=== PATIENT | female | born 1950 | race Caucasian/White ===

== ENCOUNTER → 2017-10-15 10:08 | Outpatient (CLI) | payer OTHER, SELFPAY ==
--- NOTE | 2017-10-15 10:36 | RAD_ITS ---
XR Chest 2 Views INDICATION: FULL BODY RASH OF UNKNOWN SOURCE, NO CHEST COMPLAINTS COMPARISON: None FINDINGS: Heart size and pulmonary vascularity are within normal limits. Sternotomy wires are noted The lungs are clear without evidence of airspace consolidation or pleural effusion. The osseous structures are grossly unremarkable. RAD/Chest PA and Lateral IMPRESSION: No radiographic evidence of acute intrathoracic disease. at 0059 Reported and signed by: Juany Torres MD Electronically Signed: Juany Torres MD at 23:57 EST Tel , Service support ,
[2017-10-15 11:21] LABS: Absolute Lymphocyte Count 1.14 X10^3/ul (0.83-4.51); Absolute Neutrophil Count 3.7 X10^3/uL (2.0-7.7); Basophil# 0.03 X10^3/uL; Basophil% 0.5 % (0-1); Eosinophil# 0.17 X10^3/uL; Eosinophils% 3.1 % (0-5); Hematocrit 41.6 % (37-47); Hemoglobin 13.5 g/dl (12.0-15.0); Lymphocyte # 1.14 X10^3/ul (4.0); Lymphocyte % 20.8 % (19-41); Mean Corp Hgb Conc 32.5 g/gl (32-36); Mean Corpuscular Hgb 30.1 pg (27.0-32.0); Mean Corpuscular Volume 92.7 fL (81-99); Mean Platelet Vol. 9.4 fl (6.2-12.0); Monocyte# 0.44 X10^3/uL; Neutrophil # 3.68 X10^3/uL (2.7-7.7); Neutrophil % 67.4 % (47-70); Platelet Count 181 K/mm3 (150-450); RBC Distribution Width CV 13.1 % (11.6-14.6); RBC Distribution Width SD 43.1 fl (35.1-43.9); Red Blood Count 4.49 M/mm3 (4.2-5.4); White Blood Count 5.5 K/mm3 (4.4-11.0)
[2017-10-15 11:36] LABS: POSITIVE COUNT NO; POSITIVE DIFFERENTIAL NO; POSITIVE MORPHOLOGY NO
[2017-10-15 11:52] LABS: AST(SGOT) 27 U/L (15-37); Alanine Aminotransfer ALT/SGPT 34 U/L (13-56); Alkaline Phosphatase 102 U/L (45-117); Anion Gap 5 (5-15); BUN 15 mg/dL (7-18); BUN/Creat Ratio 16.6 RATIO (10-20); Bilirubin, Direct 0.14 mg/dL (0.00-0.30); Calcium,Total 8.7 mg/dL (8.5-10.1); Chloride 108 mmol/L (98-107); EST Glomerular Filtration Rate 66 mL/min (>60); Est Glom Filt Rate - Afr Amer 80 mL/min (>60); Glucose 115 mg/dL (74-106); Potassium 4.1 mmol/L (3.5-5.1); Sodium Level 142 mmol/L (136-145); T4 Free Direct 1.06 ng/dL (0.76-1.46); Thyroid Stim Hormone (TSH) 0.89 uIU/mL (0.358-3.74)
[2017-10-16 16:09] LABS: Albumin 3.6 g/dL (2.9-4.4); Alpha-1-Globulins 0.2 g/dL (0.0-0.4); Alpha-2-Globulins 0.7 g/dL (0.4-1.0); Immunoglobulin A 80 mg/dL (87-352); Immunoglobulin G 919 mg/dL (700-1600); Immunoglobulin M 117 mg/dL (26-217); PROEL- TOTAL PROTEIN 6.5 g/dL (6.0-8.5); PROELU- Albumin, Urine 37.7 % (.); PROELU- Alpha-1-Globulin,Ur 3.6 % (.); PROELU- Alpha-2-Globulin,Ur 14.5 % (.); PROELU- Beta Globulin, Ur 22.4 % (.); PROELU- Gamma Globulin, Ur 21.7 % (.); Total Protein, Ur 40.7 mg/dL (Not Estab.)
[2017-10-17 07:57] LABS: HIV-1 RNA by PCR, Quant. < 20 copies/mL (.)
[2017-10-17 13:40] LABS: Hep C Antibodies <0.1 s/co ratio (0.0-0.9)
== END ==
PROVIDERS: Family Provider Internal Medicine; PCP Internal Medicine; Visit Provider Dermatology
DX: L29.8 Other pruritus (principal)
CPT/HCPCS: 36415; 71046; 80048; 80076; 82784; 84165; 84166; 84439; 84443; 85025; 86334; 86803; 87536

== ENCOUNTER → 2018-06-25 07:13 | Outpatient (CLI) | payer OTHER, SELFPAY ==
--- NOTE | 2018-06-25 14:08 | PFTCOMP_ITS ---
COMPLETE PULMONARY FUNCTION TEST INTERPRETATION Brief HPI: Patient is a 67 year old female, currently under the care of Dr. Peña, who presents to [facility] for complete pulmonary function tests secondary to diagnosis of dyspnea. Respiratory therapist reports good effort and reproducible results. Interpretation: Forced expiration spirometry shows a mild large airways obstructive ventilatory defect with an FEV1 of 78% predicted. There is no significant bronchodilator res ponse by strict ATS criteria. Spirograms are of good quality and plateau slowly, indicating slowly emptying areas of the lungs. The respiratory flow volume loop shows decreased expiratory flow rates at all lung volumes consistent with airway obstruction. Lung volumes by body plethysmography show a normal total lung capacity at 4.44 L, 102% predicted. All other lung volumes are within normal limits. Diffusion capacity by carbon monoxide is decreased at 62% predicted. The airway resistance is normal. No previous pulmonary function tests were available for review. Impression: Mild large airways obstructive ventilatory defect with a reduction in diffusing capacity.
== END ==
PROVIDERS: Family Provider Internal Medicine; PCP Internal Medicine; Referring Provider Internal Medicine; Visit Provider Internal Medicine
DX: R06.02 Shortness of breath (principal)
CPT/HCPCS: 94060; 94726; 94729

== ENCOUNTER → 2018-06-26 09:25 | Outpatient (CLI) | payer OTHER, SELFPAY | PROVIDERS: Family Provider Internal Medicine; PCP Internal Medicine; Referring Provider Internal Medicine; Visit Provider Internal Medicine | DX: Z78.0 Asymptomatic menopausal state (principal) ==

== ENCOUNTER → 2018-07-09 12:11 | Outpatient (CLI) | payer OTHER, SELFPAY ==
[2018-07-09] VITALS (7 sets, daily range): BP systolic 131–178; BP diastolic 57–101; PULSE 69–91; RESP 16–18; O2SAT 93–99; BMI 52.7
--- NOTE | 2018-07-09 12:20 | BD_ITS ---
STUDY: DUAL ENERGY X-RAY ABSORPTIOMETRY / DXA REASON FOR EXAM: Female, 67 years old. Early menopause. TECHNIQUE: Bone Mineral Density (BMD) measurements of lumbar spine and bilateral hips were obtained. COMPARISON: Comparison is made with prior examination dated June 01, 2016. FINDINGS: Lumbar Spine (L1-L4): g/cm2 (1.118) / T-score (-0.7) / Z-score (0.9) Findings are suggestive of normal bone density with a low fracture risk. Left Femur Total: g/cm2 (0.990) / T-score (-0.1) / Z-score (1.1) Left Femoral Neck: g/cm2 (0.897) / T-score (-1.0) / Z-score (0.5) Right Femur Total: g/cm2 (0.850) / T-score (-1.3) / Z-score (0.0) Right Femoral Neck: g/cm2 (0.798) / T-score (-1.7) / Z-score (-0.2) The T-Scores on the most recent prior examination were: Lumbar Spine (L1-L4): There has been improvement of bone density since the previous examination. Left Femur Total: which represents a worsening of 5.0%. Right Femur Total: which represents a worsening of 3.6%. BD/Dexa Bone Density Study IMPRESSION: The patient is considered osteopenic as outlined below according to World Hari Organization (WHO) criteria with a moderate fracture risk. There has been worsening of bone density since the previous examination. Reference Information: The T-score is the number of standard deviations above or below the standard which is normal for young adults at their peak bone mineral density. The World Health Organization (WHO) interprets the T-scores as follows: Above -1 Normal bone density Between -1 and -2.5 Osteopenia Equal to / or below -2.5 Osteoporosis As a practical clinical guideline, osteopenia may be graded as follows: Mild -1 through -1.5 Moderate -1.6 through -2.0 Severe -2.1 through -2.4 The Z-score is the number of standard deviations above or below age-matched controls. A Z-score of less than -1.5 would be considered abnormal. References: 1. NIH Osteoporosis and Related Bone Diseases http://www.osteo.org 2. International Society for Clinical Densitometry http://www.iscd.org 3. National Osteoporosis Foundation http://www.nof.org Electronically Signed: Gerry Jarrett MD at 15:46 EST Tel [phone], Service support ,
--- NOTE | 2018-07-09 12:44 | CT_ITS ---
STUDY: CT CHEST WITHOUT CONTRAST REASON FOR EXAM: Female, 67 years old. Elevated cholesterol. Coronary artery disease. This is an over read examination. RADIATION DOSAGE (If Supplied By Facility): CTDIvol = ( 12.19 ) mGy, DLP = ( 195.04 ) mGycm TECHNIQUE: Transaxial imaging was performed without the administration of intravenous contrast material. Individualized dose optimization techniques were used for this CT. COMPARISON: None. FINDINGS: The lungs are normal. There is no demonstrated pleural abnormality. Sternal cerclage wires and vascular clips are present from a prior sternotomy and coronary artery bypass graft procedure (CABG). There are calcifications of the coronary arteries. Normal mediastinum. Normal hilar regions. Normal unenhanced pulmonary arteries. There is atherosclerotic calcification of the aortic arch . There are mild degenerative changes of the thoracic spine. Small hiatal hernia. CT/Limited Chest CT w/CCTA IMPRESSION: No acute abnormality is seen. Electronically Signed: Gerry Jarrett MD at 10:30 EST Tel [phone], Service support ,
[2018-07-09] MEDS: Metoprolol Tartrate 5 MG/5 ML Vial IV (13:18)
--- NOTE | 2018-07-11 08:57 | CA.SCORE ---
Calcium Scoring Date of Study:: 07/09/18 Coronary Calcium Scoring: Coronary calcium scoring. High-resolution computed tomographic imaging of the chest was performed on 07/09/2018 with particular attention paid to the coronary arteries. Images from the exam were analyzed for the presence and extent of coronary artery calcification using the quantification software. The patient tolerated the procedure well there were no complications. Of note is the fact that the patient has had known coronary artery disease and coronary bypass surgery with sternotomy clips. The coronary artery calcification score is therefore noted to be highly skewed. Left main 393. Left anterior descending artery thousand 141. Left circumflex artery 579. Right coronary artery thousand 514. Total Agagston score is 3627. The above coronary calcium score is likely not accurate due to the significant sternal clips as well as post coronary bypass surgery state.
== END ==
PROVIDERS: Family Provider Internal Medicine; PCP Internal Medicine; Referring Provider Internal Medicine; Visit Provider Internal Medicine
DX: I25.10 Atherosclerotic heart disease of native coronary artery without angina pectoris (principal); E11.9 Type 2 diabetes mellitus without complications; R79.89 Other specified abnormal findings of blood chemistry; E78.5 Hyperlipidemia, unspecified; Z78.0 Asymptomatic menopausal state
CPT/HCPCS: 75571; 76380; 77080; A4216

== ENCOUNTER → 2019-01-13 | Outpatient (CLI) | payer SELFPAY | END | disposition home or self-care (01) | LOC: LABSPEC 16:59 | PROVIDERS: Family Provider Internal Medicine; PCP Internal Medicine; Referring Provider Urology; Visit Provider Urology | DX: N39.0 Urinary tract infection, site not specified (principal) | CPT/HCPCS: 87077; 87086; 87088; 87186 ==

== ENCOUNTER → 2019-02-13 | Outpatient (CLI) | payer MEDICARE, OTHER, SELFPAY ==
--- NOTE | 2019-02-13 08:13 | US_ITS ---
STUDY: ABDOMINAL ULTRASOUND - RIGHT UPPER QUADRANT REASON FOR VISIT: Female, 68 years old. Elevated LFTs. TECHNIQUE: Ultrasound evaluation of the right upper quadrant was performed with real-time and static arvizu-scale imaging. TECHNICAL QUALITY: Examination limited by bowel gas. COMPARISON: CT of the abdomen and pelvis, June 18, 2017. FINDINGS: Liver: The liver measures 17.0 cm. There is increased echogenicity consistent with fatty infiltration. The bile ducts are within normal limits. There is hepatic color flow. The direction of portal flow is hepatopetal. There is limited penetration of the liver without demonstrated mass lesion. Gallbladder: The patient is status post cholecystectomy. Common Bile Duct (C.B.D.): The common bile duct measures 4.3 mm. Pancreas: There is nonvisualization of the pancreas. Right Kidney: Normal size of the right kidney. The right kidney measures 10.9 cm. Normal renal cortex. The right cortex measures 1.3 cm. There is no demonstrated renal mass or cyst. There is no right hydronephrosis. US/Liver IMPRESSION: 1. Prominent fatty infiltrated liver with limited sonographic penetration. 2. Status post cholecystectomy. 3. Nonvisualization of the pancreas due to bowel gas. 4. Normal right kidney. Electronically Signed: Trevor Mendoza DO at 17:05 EDT Tel [phone], Service support ,
== END | disposition home or self-care (01) ==
LOC: US 08:11
PROVIDERS: Family Provider Internal Medicine; PCP Internal Medicine; Referring Provider Internal Medicine; Visit Provider Internal Medicine
DX: R94.5 Abnormal results of liver function studies (principal)
CPT/HCPCS: 76705

== ENCOUNTER → 2019-06-26 | Outpatient (CLI) | payer MEDICARE, OTHER, SELFPAY ==
[2018-07-09 12:52] VITALS: BMI 52.7
--- NOTE | 2019-06-26 11:52 | BI_ITS ---
MAMMOGRAPHY - BILATERAL SCREENING REASON FOR EXAM: Female, 68 years old. Routine annual screening examination. PERTINENT HISTORY: Non-contributory. TECHNIQUE: Digital bilateral breast christiana (3D mammographic acquisition) in the CC and MLO projections. 2-D mediolateral oblique (MLO) and craniocaudad (CC) views of both breasts were obtained. CAD: Full Field Digital Mammography with Computer Added Detection was performed. COMPARISON: Comparison is made with prior outside examination dated June 19, 2018. FINDINGS: Breast Composition: The breasts are almost entirely fatty. There are no dominant masses or suspicious calcifications. No other significant abnormalities are identified. There has been no significant change since the prior study. BI/SCREEN MAMM (CAD) W/CHRISTIANA BILAT IMPRESSION: Stable bilateral screening mammogram. Yearly follow-up mammogram recommended. (A) ASSESSMENT CATEGORY: BIRADS Category 2: Benign. A letter regarding these results will be sent to the patient by the facility within 30 days. Approximately 10% of breast cancers are not detected by mammography. A normal mammogram should not delay biopsy of a clinically suspicious abnormality. [id number] Electronically Signed: Gerry Jarrett, at 8:52 EST , Service support ,
== END | disposition home or self-care (01) ==
LOC: OPBI 11:51
PROVIDERS: Family Provider Internal Medicine; PCP Internal Medicine; Referring Provider Internal Medicine; Visit Provider Internal Medicine
DX: Z12.31 Encounter for screening mammogram for malignant neoplasm of breast (principal)
CPT/HCPCS: 77063; 77067

== ENCOUNTER → 2019-12-30 | Outpatient (CLI) | payer MEDICARE, OTHER, SELFPAY ==
[2019-07-28 13:33] VITALS: BMI 49.7
--- NOTE | 2019-12-30 12:22 | CT_ITS ---
STUDY: CT RIGHT KNEE WITHOUT CONTRAST REASON FOR EXAM: Female, 69 years old. FELA KNEE, RT KNEE PAIN, NO KNOWN INJURY, OSTEOARTHRITIS OF KNEE, HX HTN, DB, CABG RADIATION DOSAGE (If Supplied By Facility): CTDIvol = ( 34.72 ) mGy, DLP = ( 2019.32 ) mGycm TECHNIQUE: Transaxial CT imaging of the knee was performed. Coronal and sagittal images were reformatted. Individualized dose optimization techniques were used for this CT. COMPARISON: Comparison is made with prior examination of the knee dated May 25, 2016. FINDINGS: Degenerative spurring is seen along the greater trochanter of the proximal right femur. No significant joint space narrowing is seen in the right hip joint. Degenerative spurring is seen along the medial femoral condyle and medial tibial plateau. Marked degree of joint space narrowing involving the medial compartment of the knee joint. Degenerative spurring is seen along the lateral tibial plateau as well as the lateral femoral condyle. Mild degree of joint space narrowing of the lateral compartment. Normal proximal tibiofibular articulation. There is no joint effusion. The quadriceps tendon is grossly normal. The patellar tendon is grossly normal. Normal Hoffa''s fat pad. The soft tissues are unremarkable. CT/Extremity Lower without Contra IMPRESSION: Degenerative changes of the medial compartment of the knee joint as described. Electronically Signed: Gerry Jarrett, at 8:33 EDT , Service support ,
== END | disposition home or self-care (01) ==
LOC: CT 12:18
PROVIDERS: PCP Internal Medicine; Referring Provider Orthopaedic Surgery; Visit Provider Orthopaedic Surgery
DX: M17.0 Bilateral primary osteoarthritis of knee (principal)
CPT/HCPCS: 73700

== ENCOUNTER 2020-01-05 07:21 | Observation (INO) | payer MEDICARE, OTHER, SELFPAY ==
[2019-07-28 13:33] VITALS: BMI 49.7
--- NOTE | 2019-12-30 12:22 | EKG12_ITS ---
Test Reason : PREOP Blood Pressure : / mmHG Vent. Rate : 071 BPM Atrial Rate : 071 BPM P-R Int : 158 ms QRS Dur : 080 ms QT Int : 426 ms P-R-T Axes : 013 000 058 degrees QTc Int : 462 ms Normal sinus rhythm Incomplete right bundle branch block Inferior [place], age undetermined, cannot be excluded Nonspecific T wave abnormality Abnormal ECG Confirmed by KAROL TILLEY, GERONIMO ([id number]), acquisitions editor JUANJO LOCKHART ([id number]) on 12/31/2019 9:01:22 AM Referred By: Caleb Espinoza Confirmed By:GERONIMO ROBERSON MD
[2019-12-30 13:18] LABS: Absolute Lymphocyte Count 1.73 X10^3/uL (0.83-4.51); Absolute Neutrophil Count 6.1 X10^3/uL (2.0-7.7); Basophil# 0.06 X10^3/uL; Basophil% 0.7 % (0-1); Eosinophil# 0.15 X10^3/uL; Eosinophils% 1.7 % (0-5); Hematocrit 46.2 % (37-47); Hemoglobin 14.8 g/dL (12.0-15.0); Lymphocyte # 1.73 X10^3/ul (4.0); Lymphocyte % 19.6 % (19-41); Mean Corpuscular Hgb 30.5 pg (27.0-32.0); Mean Corpuscular Volume 95.1 fL (81-99); Monocyte# 0.73 X10^3/uL; Monocyte% 8.3 % (0-10); NRBC Flagged by Analyzer 0 % (0-5); Neutrophil # 6.11 X10^3/uL (2.7-7.7); Neutrophil % 69.2 % (47-70); Platelet Count 210 K/mm3 (150-450); RBC Distribution Width CV 12.5 % (11.6-14.6); RBC Distribution Width SD 43.4 fl (35.1-43.9); Red Blood Count 4.86 M/mm3 (4.2-5.4); White Blood Count 8.8 K/mm3 (4.4-11.0)
[2019-12-30 13:57] LABS: Anion Gap 4 (5-15); BUN 19 mg/dL (7-18); BUN/Creat Ratio 15.1 RATIO (10-20); Calcium,Total 9.3 mg/dL (8.5-10.1); Chloride 108 mmol/L (98-107); Creatinine, Serum 1.26 mg/dL (0.55-1.02); EST Glomerular Filtration Rate 45 mL/min (>60); Est Glom Filt Rate - Afr Amer 54 mL/min (>60); Glucose 149 mg/dL (74-106); Potassium 4.5 mmol/L (3.5-5.1); Sodium Level 141 mmol/L (136-145)
[2020-01-05] VITALS (13 sets, daily range): BP systolic 76–130; BP diastolic 46–88; PULSE 66–84; RESP 14–18; TEMP 36.3–37.3; O2SAT 92–100; BMI 49.3
[2020-01-05] MEDS: Scopolamine 1mg/72hr Patch 1 PATCH TRANSDERM. (06:06)
[2020-01-05] MEDS: Gabapentin 600 MG Tablet PO (06:06)
[2020-01-05] MEDS: Acetaminophen 500 MG Tablet 1000 MG PO ×3 (06:06→22:11)
[2020-01-05] MEDS: Lactated Ringers 1,000 ML 100 ML IV ×2 (06:19→11:56)
[2020-01-05 06:31] LABS: Bedside Glucose 278 mg/dL (70-110)
[2020-01-05] MEDS: Insulin Lispro 100 UNIT/ML INSULN.PEN SC (07:10)
--- NOTE | 2020-01-05 07:30 | KNEE_PTH ---
PATIENT: VERNON SOTOMAYOR LOC: MS3 U#:[id number] AGE/SX: 69/F ROOM: [facility] RE01/05/[address]: Dr. Caleb Espinoza DO : 1950 BED: 1 DIS: 01/06/2020 SPEC #: [id number] RECD: 01/05/20 13:22 STATUS: TAHIR REPatricia #: [id number] LISA: 01/05/20 07:[address]: Caleb Espinoza DEPT: SURGICAL PATHOLOGY RECD BY: Kareem Hayward ENTERED: 01/06/20 09:01 SP TYPE: TOTAL KNEE OTHR DR: MD Dr. Gaurav Gómez MD Tissues: Knee, NOS Procedures: Decalcification bone/plaque Surgery Specimen Level IV HEADER OPERATION: XAVIERS, robotic assisted total knee arthroplasty PRE-OP DIAGNOSIS: Osteoarthritis TISSUE SUBMITTED: Bone from right knee MICROSCOPIC DIAGNOSIS Bone of right knee, total knee resection: Severe degenerative joint disease. AM:сергей 01/09/20 MICROSCOPIC DESCRIPTION Slides are reviewed. GROSS DESCRIPTION Received is one container designated bone from right knee. The specimen consists of multiple fragments of shelton-yellow bone measuring in aggregate 10 x 8 x 4 cm. No soft tissue is identified. A number of bony fragments contain articular surfaces consistent with tibial plateau and femoral condyle and displaying prominent osteophyte formation, eburnation, and bone erosion. Cleaning Handyman sections are submitted in one cassette after decalcification. / SJ:сергей 01/06/20 TC:5 CPT: 43522, 86032
--- NOTE | 2020-01-05 09:05 | OP.PCM_ITS ---
Report of Operation Date of Procedure: 01/05/20 Pre-Operative Diagnosis: OA right knee Post-Operative Diagnosis: OA right knee Surgery/Procedure Performed:: right TKR supervisor electronic testing: Asim Taylor Type of Anesthesia:: Spinal Anesthesiologist: Devin Barahona - Admmiky VTE Documentation VTE Present on Admission: No VTE Mechan Device Prophylaxis: SCD's, Thigh High FRANCHESKA Hose VTE Pharm Prophylaxis ordered?: Yes
[2020-01-05 10:05] LABS: Bedside Glucose 125 mg/dL (70-110)
--- NOTE | 2020-01-05 10:25 | RAD_ITS ---
STUDY: X-RAY - RIGHT KNEE REASON FOR EXAM: Female, 69 years old. POST OP TECHNIQUE: AP and lateral view(s) of the knee. COMPARISON: None. FINDINGS: Normal visualized distal femur. Normal visualized proximal tibia and fibula. Normal proximal tibiofibular articulation. The patient is status post total knee replacement. There is good alignment. Postoperative soft tissue changes. RAD/Knee 1 or 2 Views IMPRESSION: Status post total knee replacement. There is good alignment. Postoperative soft tissue changes. Electronically Signed: Gerry Jarrett, at 12:27 EDT , Service support ,
[2020-01-05 10:48] LABS: Hematocrit 39.6 % (37-47); Hemoglobin 12.6 g/dL (12.0-15.0); Mean Corp Hgb Conc 31.8 g/dL (32-36); Mean Corpuscular Hgb 30.2 pg (27.0-32.0); Mean Platelet Vol. 9.7 fl (6.2-12.0); POSITIVE COUNT YES; Platelet Count 115 K/mm3 (150-450); RBC Distribution Width CV 12.7 % (11.6-14.6); Red Blood Count 4.17 M/mm3 (4.2-5.4); White Blood Count 7.4 K/mm3 (4.4-11.0)
[2020-01-05 10:49] LABS: Scan Indicated on CBC? Y/N YES- FLAGS NOTED
[2020-01-05 11:03] LABS: Anion Gap 5 (5-15); BUN 13 mg/dL (7-18); BUN/Creat Ratio 11.8 RATIO (10-20); Calcium,Total 8.3 mg/dL (8.5-10.1); Chloride 109 mmol/L (98-107); EST Glomerular Filtration Rate 53 mL/min (>60); Est Glom Filt Rate - Afr Amer 64 mL/min (>60); Estimated Creatinine Clearance 38.71 ml/min; Glucose 141 mg/dL (74-106); Sodium Level 141 mmol/L (136-145)
[2020-01-05] MEDS: Atorvastatin Calcium 80 MG Tablet PO (13:47)
[2020-01-05] MEDS: Escitalopram Oxalate 20 MG Tablet PO (13:48)
[2020-01-05] MEDS: Ezetimibe 10 MG Tablet PO (13:48)
[2020-01-05] MEDS: Cefazolin 1 GM/50 ML BAG IV ×2 (15:50→22:44)
--- NOTE | 2020-01-05 17:28 | PN_ITS ---
Subjective: Chief complaint: Consultation for postoperative vision change, diplopia. This is a 69 years old female patient underwent elective right total knee replacement for right knee osteoarthritis and postoperatively, patient developed vision change with diplopia which is attributed to scopolamine patch which was taken off but symptoms persisted and I was asked to see the patient in consultation. Patient seen and examined. Patient had her surgery this morning and she did well after surgery. This afternoon around 4 PM, she complained of vision change, described as diplopia seeing things double, associated with mild dizziness and without aggravating or relieving factors. Scopolamine patch taken off around 4:10 PM and at this time, she mentioned that the diplopia is eased up. She denied any headache, nausea or vomiting. She denied numbness or tingling. She denied focal arm or leg weakness. Her vital signs has been stable. - Physical Exam Vitals/I&O's: Vital Signs Temp Pulse Resp BP Pulse Ox 97.6 F L 71 16 100/46 L 94 01/05/20 15:51 01/05/20 15:51 01/05/20 15:51 01/05/20 15:51 01/05/20 15:51 Oxygen Flow Rate (L/min) 6 Oxygen Delivery Method Room Air Weight: 269 lb 13.533 oz Body Mass Index (BMI) 49.3 Finger Stick Blood Glucose 125 Intake and Output for Last 24 Hours 01/03/20 01/04/20 01/05/20 23:59 23:59 23:59 Intake Total 946.67 / 946.67 Balance 946.67 / 946.67 General: Alert, Oriented x3, Cooperative, No apparent distress HEENT: Atraumatic, PERRLA, EOMI, Normocephalic Oral: Moist Mucosa, No Gingival or Mucosal Lesions/ Ulcerations Neck: Supple, No JVD, Negative Carotid Bruits, Trachea Midline, Thyroid Normal Size and Texture Lungs: Clear to auscultation, Normal air movement, No rhonchi, No wheeze, No rales Cardiovascular: Regular rate, Regular Rhythm, Normal S1, Normal S2, PMI Normal Abdomen: Bowel Sounds Present, Soft, Non Tender, Non-Distended, No Hepato- splenomegaly Extremities: No clubbing, No cyanosis, Edema - Nonpitting edema. Skin: No rashes, No breakdown Lymphatic: No Cervical, Supraclavicular, or Inguinal Adenopathy Neurological: Cranial nerves II-XII grossly intact, Motor Exam 5/5 strength t hroughout, - - Diplopia. Psych/Mental Status: Normal Affect, Appropriate, Alert and oriented to time, place, person, mood and affect Laboratory Results 01/05/20 05:51: POC Glucose 278 H 01/05/20 10:03: POC Glucose 125 H 01/05/20 10:41: WBC 7.4, RBC 4.17 L, Hgb 12.6, Hct 39.6, MCV 95.0, MCH 30.2, MCHC 31.8 L, RDW Std Deviation 44.0 H, RDW Coeff of Bayron 12.7, Plt Count 115 L, MPV 9.7 01/05/20 10:41: Sodium 141, Potassium 4.0, Chloride 109 H, Carbon Dioxide 27.0, Anion Gap 5, BUN 13, Creatinine 1.10 H, Estim Creat Clear Calc 38.71, Est GFR (MDRD) Af Amer 64, Est GFR (MDRD) Non-Af 53 L, BUN/Creatinine Ratio 11.8, Glucose 141 H, Calcium 8.3 L Current Medications Acetaminophen (Tylenol) 1,000 mg PO Q8 [facility] Last Admin: 01/05/20 13:47 Dose: 1,000 mg Documented by: Aspirin (Aspirin) 325 mg PO BID [facility] Atorvastatin Calcium (Lipitor) 80 mg PO DAILY [facility] Last Admin: 01/05/20 13:47 Dose: 80 mg Documented by: Ezetimibe (Zetia) 10 mg PO DAILY [facility] Last Admin: 01/05/20 13:48 Dose: 10 mg Documented by: Escitalopram Oxalate (Lexapro) 20 mg PO DAILY [facility] Last Admin: 01/05/20 13:48 Dose: 20 mg Documented by: Lactated Ringer's () 1,000 mls @ 100 mls/hr IV .Q10H [facility] Last Admin: 01/05/20 11:56 Dose: 100 mls/hr Documented by: Cefazolin Sodium () 1 gm in 50 mls @ 150 mls/hr IV Q8H [facility] Stop: 01/05/20 23:49 Last Infusion: 01/05/20 16:10 Dose: Infused Documented by: Insulin Human Lispro (Humalog Dale (Bkc)) 1 - 6 unit SC Q4H PRN PRN; Protocol PRN Reason: BG>/= 180, SEE PROTOCOL Last Admin: 01/05/20 07:10 Dose: 3 units Documented by: Lisinopril (Zestril) 5 mg PO DAILY [facility] Metoprolol Tartrate (Lopressor (Beta Sudha)) 50 mg PO DAILY [facility] Ondansetron HCl (Zofran) 4 mg IV Q8H PRN PRN PRN Reason: NAUSEA Oxycodone HCl (Oxyir) 5 - 10 mg PO Q4H PRN PRN PRN Reason: Pain Score 4-10/10 Pantoprazole Sodium (Protonix) 40 mg PO DAILY [facility] Last Admin: 01/05/20 13:55 Dose: Not Given Documented by: Potassium Citrate (Potassium Citrate Er) 15 meq PO BID [facility] Promethazine HCl (Phenergan) 12.5 mg IM Q6H PRN PRN; Protocol PRN Reason: NAUSEA/VOMITING Senna/Docusate Sodium (Senokot-S, Naheed-Colace) 2 tablet PO BID [facility] Last Admin: 01/05/20 12:54 Dose: Not Given Documented by: Sodium Chloride () 10 - 40 ml IV UD PRN PRN Reason: SALINE FLUSH Tolterodine Tartrate (Detrol La) 4 mg PO DAILY [facility] Last Admin: 01/05/20 13:55 Dose: Not Given Documented by: Medical Necessity - Tobacco Use Smoking Status: Never smoker Tobacco Use: Non-smoker Assessment/Plan This is a 69 years old female patient underwent elective right total knee replacement for right knee osteoarthritis today and I am seeing this patient in consultation after she developed vision changes/diplopia postoperatively. #1 vision change/diplopia: Without any other symptoms suggestive of TIA or stroke. Patient denied numbness, tingling, headache, focal arm or leg weakness. Her vital signs are stable. This is attributed to scopolamine patch which was taken off. Now, patient stated that the diplopia is easing up and getting better. Her vital signs are stable, blood pressure under control. Plan: Monitor, no indication for further testing or imaging at this time unless her symptoms persist. #2 status post right total knee replacement: This was done for right knee osteoarthritis, postoperative day 0. She is on IV cefazolin for perioperative prophylaxis. She is on OxyIR PRN for pain. Orthopedic surgery is managing. #3 CAD status post CABG and stents: Stable, continue aspirin, statins, Zetia, lisinopril and metoprolol. #4 hypertension: Blood pressure stable, continue lisinopril and metoprolol. #5 hyperlipidemia: Continue statins. #6 depression: Stable, continue Lexapro. #7 DVT prophylaxis: On aspirin twice daily. Inpatient E&M: 71123 Subs Hosp L2
[2020-01-05] MEDS: Aspirin 325 MG Tablet PO (22:11)
[2020-01-05] MEDS: Senna/Docusate Sodium 1 Tablet 2 TABLET PO (22:11)
[2020-01-06 02:00] VITALS: BP 136/53; PULSE 84; RESP 16; TEMP 36.5; O2SAT 100
[2020-01-06] MEDS: Acetaminophen 500 MG Tablet 1000 MG PO ×2 (05:26→13:43)
[2020-01-06] MEDS: 0.9% Saline Lock 10 ML Syringe IV (05:27)
[2020-01-06 06:19] LABS: Hematocrit 34.9 % (37-47); Hemoglobin 11.4 g/dL (12.0-15.0); Mean Corp Hgb Conc 32.7 g/dL (32-36); Mean Corpuscular Hgb 30.2 pg (27.0-32.0); Mean Corpuscular Volume 92.6 fL (81-99); Platelet Count 103 K/mm3 (150-450); RBC Distribution Width CV 12.9 % (11.6-14.6); RBC Distribution Width SD 42.8 fl (35.1-43.9); Red Blood Count 3.77 M/mm3 (4.2-5.4); White Blood Count 7.3 K/mm3 (4.4-11.0)
[2020-01-06] MEDS: oxyCODONE 5 MG Tablet PO (06:46)
[2020-01-06 06:49] LABS: Anion Gap 9 (5-15); BUN 14 mg/dL (7-18); BUN/Creat Ratio 14.3 RATIO (10-20); Calcium,Total 8.5 mg/dL (8.5-10.1); Chloride 105 mmol/L (98-107); Creatinine, Serum 0.98 mg/dL (0.55-1.02); EST Glomerular Filtration Rate 60 mL/min (>60); Est Glom Filt Rate - Afr Amer 73 mL/min (>60); Estimated Creatinine Clearance 43.45 ml/min; Glucose 152 mg/dL (74-106); Sodium Level 137 mmol/L (136-145)
--- NOTE | 2020-01-06 07:24 | PCM.PN.ORT ---
Subjective: Patient sitting at bedside eating breakfast. Patient states pain is well managed. Patient states that her double vision has resolved. Patient denies chest pain, shortness of breath, calf pain, nausea vomiting. Patient has no other complaints and states she is ready to be discharged home. Objective: Dressing is clean dry intact. Negative signs or symptoms of DVT. Patient moving all extremities without limitations. Patient's vitals and labs all within normal limits. Patient is a febrile, speaking in full sentences with no obvious shortness of breath. - Physical Exam Vitals/I&O's: Vital Signs Temp Pulse Resp BP Pulse Ox 97.7 F L 84 16 136/53 H 100 01/06/20 02:00 01/06/20 02:00 01/06/20 02:00 01/06/20 02:00 01/06/20 02:00 Oxygen Flow Rate (L/min) 6 Oxygen Delivery Method Room Air Weight: 122.4 kg Body Mass Index (BMI) 49.3 Finger Stick Blood Glucose 125 Intake and Output for Last 24 Hours 01/04/20 01/05/20 01/06/20 23:59 23:59 23:59 Intake Total 2368.34 / 2368.34 1310.25 / 1310.25 Output Total 150 / 150 800 / 800 Balance 2218.34 / 2218.34 510.25 / 510.25 General: Alert, Oriented x3 Oral: Moist Mucosa Cardiovascular: Regular rate Neurological: Cranial nerves II-XII grossly intact Psych/Mental Status: Normal Affect, Alert and oriented to time, place, person, mood and affect Laboratory Results 01/05/20 10:03: POC Glucose 125 H 01/05/20 10:41: WBC 7.4, RBC 4.17 L, Hgb 12.6, Hct 39.6, MCV 95.0, MCH 30.2, MCHC 31.8 L, RDW Std Deviation 44.0 H, RDW Coeff of Bayron 12.7, Plt Count 115 L, MPV 9.7 01/05/20 10:41: Sodium 141, Potassium 4.0, Chloride 109 H, Carbon Dioxide 27.0, Anion Gap 5, BUN 13, Creatinine 1.10 H, Estim Creat Clear Calc 38.71, Est GFR (MDRD) Af Amer 64, Est GFR (MDRD) Non-Af 53 L, BUN/Creatinine Ratio 11.8, Glucose 141 H, Calcium 8.3 L 01/06/20 05:42: WBC 7.3, RBC 3.77 L, Hgb 11.4 L, Hct 34.9 L, MCV 92.6, MCH 30.2, MCHC 32.7, RDW Std Deviation 42.8, RDW Coeff of Bayron 12.9, Plt Count 103 L, MPV 10.0 01/06/20 05:42: Sodium 137, Potassium 4.0, Chloride 105, Carbon Dioxide 23.0, Anion Gap 9, BUN 14, Creatinine 0.98, Estim Creat Clear Calc 43.45, Est GFR (MDRD) Af Amer 73, Est GFR (MDRD) Non-Af 60, BUN/Creatinine Ratio 14.3, Glucose 152 H, Calcium 8.5 Current Medications Acetaminophen (Tylenol) 1,000 mg PO Q8 [facility] Last Admin: 01/06/20 05:26 Dose: 1,000 mg Documented by: Aspirin (Aspirin) 325 mg PO BID [facility] Last Admin: 01/05/20 22:11 Dose: 325 mg Documented by: Atorvastatin Calcium (Lipitor) 80 mg PO DAILY [facility] Last Admin: 01/05/20 13:47 Dose: 80 mg Documented by: Ezetimibe (Zetia) 10 mg PO DAILY [facility] Last Admin: 01/05/20 13:48 Dose: 10 mg Documented by: Escitalopram Oxalate (Lexapro) 20 mg PO DAILY [facility] Last Admin: 01/05/20 13:48 Dose: 20 mg Documented by: Insulin Human Lispro (Humalog Kwikpen (Bkc)) 1 - 6 unit SC Q4H PRN PRN; Protocol PRN Reason: BG>/= 180, SEE PROTOCOL Last Admin: 01/05/20 07:10 Dose: 3 units Documented by: Lisinopril (Zestril) 5 mg PO DAILY [facility] Metoprolol Tartrate (Lopressor (Beta Sudha)) 50 mg PO DAILY [facility] Ondansetron HCl (Zofran) 4 mg IV Q8H PRN PRN PRN Reason: NAUSEA Oxycodone HCl (Oxyir) 5 - 10 mg PO Q4H PRN PRN PRN Reason: Pain Score 4-10/10 Last Admin: 01/06/20 06:46 Dose: 5 mg Documented by: Pantoprazole Sodium (Protonix) 40 mg PO DAILY [facility] Last Admin: 01/05/20 13:55 Dose: Not Given Documented by: Potassium Citrate (Potassium Citrate Er) 15 meq PO BID [facility] Last Admin: 01/05/20 22:17 Dose: 15 meq Documented by: Promethazine HCl (Phenergan) 12.5 mg IM Q6H PRN PRN; Protocol PRN Reason: NAUSEA/VOMITING Senna/Docusate Sodium (Senokot-S, Naheed-Colace) 2 tablet PO BID [facility] Last Admin: 01/05/20 22:11 Dose: 2 tablet Documented by: Sodium Chloride () 10 - 40 ml IV UD PRN PRN Reason: SALINE FLUSH Last Admin: 01/06/20 05:27 Dose: 10 ml Documented by: Tolterodine Tartrate (Detrol La) 4 mg PO DAILY [facility] Last Admin: 01/05/20 13:55 Dose: Not Given Documented by: Medical Necessity - Tobacco Use Smoking Status: Never smoker Tobacco Use: Non-smoker Assessment/Plan Status post right total knee arthroplasty Diplopia/ resolved Plan 1. Continue all pain medications as prescribed 2. Continue physical therapy 3. We will continue physical therapy outpatient at [facility] 4. Aspirin 325 mg 1 p.o. every 12 hours x30 days for postop DVT prophylaxis 5. Encourage incentive spirometry 6. Discharge home after p.m. therapy 7. Follow-up with Dr. Espinoza as scheduled
--- NOTE | 2020-01-06 07:34 | PCM.DC.TKR ---
Discharge Diet: No Restrictions Discharge Activity: May Not Drive, May Shower, Use Walker May shower in (days): 3 Ice area for (Minutes): 20 - each hour while awake. Weight Bearing Status: Weight bearing as tolerated Elevate: Operative Extremity Additional Activity Instructions:: Wear elastic stockings for 2 weeks after your surgery. Call your doctor if your incision/area has: Continuous Slow Oozing, Sudden Increased Bleeding, Increased Pain/ Swelling, Increased Redness, Foul Smelling Discharge Call your doctor if you observe: Fever of 101 or Higher, Coldness, Increased Pain - in extremity, Numbness or Tingling, Change in Color, Calf discomfort, Uncontrolled pain Change Dressing in (Days):: 0 - and daily as needed. Remove Dressing in (days):: 8 Cleanse incision/area with: Soap & Water Allergies/Adverse Reactions: Allergies Sulfa (Sulfonamide Antibiotics) Allergy (Verified 01/05/20 05:53) Other Tetanus Vaccines and Toxoid Allergy (Verified 01/05/20 05:53) Unknown flu vaccine Adverse Reaction (Uncoded 01/05/20 05:53) NEEDS FOLLOW-UP Medications to take at Discharge Escitalopram Oxalate [Lexapro] 20 mg PO DAILY 11/16/16 Ezetimibe [Zetia] 10 mg PO DAILY 11/16/16 Metoprolol Tartrate [Lopressor (beta jorge)] 50 mg PO DAILY 11/16/16 Omeprazole [Prilosec] 40 mg PO DAILY 11/16/16 Rosuvastatin Calcium [Crestor] 40 mg PO DAILY 11/16/16 Celecoxib [Celebrex] 200 mg PO DAILY 07/02/17 lisinopril 10 mg tablet 5 mg PO DAILY 07/08/18 oxybutynin chloride 15 mg tablet,extended release 24 hr 15 mg PO DAILY tab 07/08/18 Potassium Citrate [Potassium Citrate ER] 15 meq PO BID 01/01/20 Acetaminophen [Tylenol] 1,000 mg PO Q8 #90 tab 01/06/20 Aspirin 325 mg PO BID #60 tab 01/06/20 Oxycodone [Oxyir] 5 - 10 mg PO Q4H PRN PRN 7 Days #84 tablet 01/06/20 The following prescriptions were given: Aspirin 325 mg PO BID #60 tab Transmission Status: Pending to [facility]/pharmacy #[id number] Oxycodone [Oxyir] 5 - 10 mg PO Q4H PRN PRN 7 Days #84 tablet PRN Reason: Pain Score 4-10/10 Transmission Status: Received by [facility][id number] Acetaminophen [Tylenol] 1,000 mg PO Q8 #90 tab Transmission Status: Pending to [facility] #[id number] Primary Care Physician: Vianney Peña MD [Primary Care Provider] - Test Results: Test results from this visit will be discussed in further detail at your follow-up appointment, if applicable. Please Follow Up With: Asim Taylor PA-C When: as scheduled (see pink sheet)
--- NOTE | 2020-01-06 07:50 | PCM.PROGNOTE ---
Subjective: Chief complaint: Follow-up after consultation for postoperative vision change/diplopia. Patient seen and examined. No acute events overnight. Today, she denies any more diplopia, vision is back to normal. Right knee pain is about 6 out of 10 in severity, manageable. Patient started ambulating. Her vital signs are stable. - Physical Exam Vitals/I&O's: Vital Signs Temp Pulse Resp BP Pulse Ox 97.7 F L 84 16 136/53 H 100 01/06/20 02:00 01/06/20 02:00 01/06/20 02:00 01/06/20 02:00 01/06/20 02:00 Oxygen Flow Rate (L/min) 6 Oxygen Delivery Method Room Air Weight: 269 lb 13.533 oz Body Mass Index (BMI) 49.3 Finger Stick Blood Glucose 125 Intake and Output for Last 24 Hours 01/04/20 01/05/20 01/06/20 23:59 23:59 23:59 Intake Total 2368.34 / 2368.34 1310.25 / 1310.25 Output Total 150 / 150 800 / 800 Balance 2218.34 / 2218.34 510.25 / 510.25 General: Alert, Oriented x3, Cooperative HEENT: Atraumatic, PERRLA, EOMI, Normocephalic Oral: Moist Mucosa, No Gingival or Mucosal Lesions/ Ulcerations Neck: Supple, No JVD, Negative Carotid Bruits, Trachea Midline, Thyroid Normal Size and Texture Lungs: Clear to auscultation, Normal air movement, No rhonchi, No wheeze, No rales, Diminished Cardiovascular: Regular rate, Regular Rhythm, Normal S1, Normal S2, PMI Normal Abdomen: Bowel Sounds Present, Soft, Non Tender, Non-Distended, No Hepato-splenomegaly, Obese Extremities: No clubbing, No cyanosis, Edema Skin: No rashes, No breakdown Lymphatic: No Cervical, Supraclavicular, or Inguinal Adenopathy Neurological: Cranial nerves II-XII grossly intact, Neuro grossly intact Psych/Mental Status: Normal Affect, Appropriate, Alert and oriented to time, place, person, mood and affect Laboratory Results 01/05/20 10:03: POC Glucose 125 H 01/05/20 10:41: WBC 7.4, RBC 4.17 L, Hgb 12.6, Hct 39.6, MCV 95.0, MCH 30.2, MCHC 31.8 L, RDW Std Deviation 44.0 H, RDW Coeff of Bayron 12.7, Plt Count 115 L, MPV 9.7 01/05/20 10:41: Sodium 141, Potassium 4.0, Chloride 109 H, Carbon Dioxide 27.0, Anion Gap 5, BUN 13, Creatinine 1.10 H, Estim Creat Clear Calc 38.71, Est GFR (MDRD) Af Amer 64, Est GFR (MDRD) Non-Af 53 L, BUN/Creatinine Ratio 11.8, Glucose 141 H, Calcium 8.3 L 01/06/20 05:42: WBC 7.3, RBC 3.77 L, Hgb 11.4 L, Hct 34.9 L, MCV 92.6, MCH 30.2, MCHC 32.7, RDW Std Deviation 42.8, RDW Coeff of Bayron 12.9, Plt Count 103 L, MPV 10.0 01/06/20 05:42: Sodium 137, Potassium 4.0, Chloride 105, Carbon Dioxide 23.0, Anion Gap 9, BUN 14, Creatinine 0.98, Estim Creat Clear Calc 43.45, Est GFR (MDRD) Af Amer 73, Est GFR (MDRD) Non-Af 60, BUN/Creatinine Ratio 14.3, Glucose 152 H, Calcium 8.5 Current Medications Acetaminophen (Tylenol) 1,000 mg PO Q8 [facility] Last Admin: 01/06/20 05:26 Dose: 1,000 mg Documented by: Aspirin (Aspirin) 325 mg PO BID [facility] Last Admin: 01/05/20 22:11 Dose: 325 mg Documented by: Atorvastatin Calcium (Lipitor) 80 mg PO DAILY [facility] Last Admin: 01/05/20 13:47 Dose: 80 mg Documented by: Ezetimibe (Zetia) 10 mg PO DAILY [facility] Last Admin: 01/05/20 13:48 Dose: 10 mg Documented by: Escitalopram Oxalate (Lexapro) 20 mg PO DAILY [facility] Last Admin: 01/05/20 13:48 Dose: 20 mg Documented by: Insulin Human Lispro (Humalog Kwikpen (Bkc)) 1 - 6 unit SC Q4H PRN PRN; Protocol PRN Reason: BG>/= 180, SEE PROTOCOL Last Admin: 01/05/20 07:10 Dose: 3 units Documented by: Lisinopril (Zestril) 5 mg PO DAILY [facility] Metoprolol Tartrate (Lopressor (Beta Sudha)) 50 mg PO DAILY [facility] Ondansetron HCl (Zofran) 4 mg IV Q8H PRN PRN PRN Reason: NAUSEA Oxycodone HCl (Oxyir) 5 - 10 mg PO Q4H PRN PRN PRN Reason: Pain Score 4-10/10 Last Admin: 01/06/20 06:46 Dose: 5 mg Documented by: Pantoprazole Sodium (Protonix) 40 mg PO DAILY [facility] Last Admin: 01/05/20 13:55 Dose: Not Given Documented by: Potassium Citrate (Potassium Citrate Er) 15 meq PO BID [facility] Last Admin: 01/05/20 22:17 Dose: 15 meq Documented by: Promethazine HCl (Phenergan) 12.5 mg IM Q6H PRN PRN; Protocol PRN Reason: NAUSEA/VOMITING Senna/Docusate Sodium (Senokot-S, Naheed-Colace) 2 tablet PO BID [facility] Last Admin: 01/05/20 22:11 Dose: 2 tablet Documented by: Sodium Chloride () 10 - 40 ml IV UD PRN PRN Reason: SALINE FLUSH Last Admin: 01/06/20 05:27 Dose: 10 ml Documented by: Tolterodine Tartrate (Detrol La) 4 mg PO DAILY [facility] Last Admin: 01/05/20 13:55 Dose: Not Given Documented by: Medical Necessity - Tobacco Use Smoking Status: Never smoker Tobacco Use: Non-smoker Assessment/Plan This is a 69 years old female patient underwent elective right total knee replacement for right knee osteoarthritis today and I am seeing this patient in consultation after she developed vision changes/diplopia postoperatively. #1 vision change/diplopia: Attributed to scopolamine patch. Today, patient denied any more symptoms, resolved. Her vital signs are stable. Repeat routine blood work from today reviewed, was unremarkable. Patient is stable for medical standpoint and can be discharged. #2 status post right total knee replacement: This was done for right knee osteoarthritis, postoperative day 1. She is on OxyIR PRN for pain. Pain is well managed. Patient started ambulating. Orthopedic surgery is managing, plan for DC home today. #3 CAD status post CABG and stents: Stable, continue aspirin, statins, Zetia, lisinopril and metoprolol. #4 hypertension: Blood pressure stable, continue lisinopril and metoprolol. #5 hyperlipidemia: Continue statins. #6 depression: Stable, continue Lexapro. #7 DVT prophylaxis: On aspirin twice daily. This note was generated with [employer] software. It may contain incorrect words, spelling, and punctuation that were not noted in checking the note before signing. Inpatient E&M: 12312 Subs Hosp L2
[2020-01-06] MEDS: Tolterodine Tartrate 4 MG CAP.SA PO (08:01)
[2020-01-06] MEDS: Ezetimibe 10 MG Tablet PO (08:01)
[2020-01-06] MEDS: Aspirin 325 MG Tablet PO (08:01)
[2020-01-06] MEDS: Lisinopril 5 MG Tablet PO (08:01)
[2020-01-06] MEDS: Escitalopram Oxalate 20 MG Tablet PO (08:01)
[2020-01-06] MEDS: Atorvastatin Calcium 80 MG Tablet PO (08:02)
[2020-01-06] MEDS: Pantoprazole Sodium 40 MG Tablet PO (08:02)
[2020-01-06] MEDS: Senna/Docusate Sodium 1 Tablet 2 TABLET PO (08:02)
[2020-01-06 08:03] VITALS: PULSE 99
[2020-01-06] MEDS: Metoprolol Tartrate 50 MG Tablet PO (08:03)
[2020-01-06 08:05] VITALS: BP 133/59; PULSE 99; RESP 16; TEMP 37.3; O2SAT 96
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
--- NOTE | 2020-01-06 11:42 | CASEMGMT ---
BLAYNE CM in to complete MATSON form with patient. BLAYNE ALEMAN explained MATSON form to patient. Patient voiced understanding and signed form. Copy of signed MATSON form given to patient. Original filed in chart.
--- NOTE | 2020-01-06 12:45 | PHA.DC.MC ---
Pharmacy Service has performed discharge medication reconciliation and counseling for this patient. 1. ASPIRIN 325MG PO BID 2. OXYCODONE 5-10MG PO Q4H PRN PAIN 4-10/10 X 7 DAYS 3. ACETAMINOPHEN 1000MG PO Q8H The patient's discharge medication list was reviewed for discrepancies and discrepancies were resolved. Home Medications Escitalopram Oxalate [Lexapro] 20 mg PO DAILY 11/16/16 Ezetimibe [Zetia] 10 mg PO DAILY 11/16/16 Metoprolol Tartrate [Lopressor (beta jorge)] 50 mg PO DAILY 11/16/16 Omeprazole [Prilosec] 40 mg PO DAILY 11/16/16 Rosuvastatin Calcium [Crestor] 40 mg PO DAILY 11/16/16 Celecoxib [Celebrex] 200 mg PO DAILY 07/02/17 lisinopril 10 mg tablet 5 mg PO DAILY 07/08/18 oxybutynin chloride 15 mg tablet,extended release 24 hr 15 mg PO DAILY tab 07/08/18 Potassium Citrate [Potassium Citrate ER] 15 meq PO BID 01/01/20 Acetaminophen [Tylenol] 1,000 mg PO Q8 #90 tab 01/06/20 Aspirin 325 mg PO BID #60 tab 01/06/20 Oxycodone [Oxyir] 5 - 10 mg PO Q4H PRN PRN 7 Days #84 tab 01/06/20 The patient was counseled on the following discharge medications and changes in medications for homegoing were reviewed. The Reason for Use, instructions for use, and potential side effects were reviewed for all new medications. The patient's questions regarding all of their medications were answered. The patient was able to verbally demonstrate an understanding of their discharge medications.
[2020-01-06 15:00] VITALS: BP 131/61; PULSE 79; RESP 16; TEMP 37.4; O2SAT 96
== END 2020-01-06 15:57 | disposition home or self-care (01) ==
LOC: MS3 13:35 → SDC 13:36 → MS3 13:36
PROVIDERS: Physician Assistant; Admitting Provider Orthopaedic Surgery; PCP Internal Medicine; Referring Provider Orthopaedic Surgery; Visit Provider Orthopaedic Surgery
PROC: 0SRC0JZ Replacement of Right Knee Joint with Synthetic Substitute, Open Approach (ICD-10-PCS; CPT 27447; principal; 2020-01-05 07:00)
DX: M17.11 Unilateral primary osteoarthritis, right knee (principal); H53.2 Diplopia; R42 Dizziness and giddiness; I25.10 Atherosclerotic heart disease of native coronary artery without angina pectoris; I10 Essential (primary) hypertension; E78.5 Hyperlipidemia, unspecified; F32.9 Major depressive disorder, single episode, unspecified; Z79.899 Other long term (current) drug therapy; Z79.82 Long term (current) use of aspirin; Z95.1 Presence of aortocoronary bypass graft; R73.03 Prediabetes; I45.10 Unspecified right bundle-branch block
CPT/HCPCS: 01400; 27447; 64447; 36415; 73560; 80048; 82962; 85025; 85027; 87081; 88305; 88311; 93005; 96365; 96366; 97110; 97116; 97162; 97166; 97530; 97535; 99218; 99251; C1776; J7120; A4216; G0378; G0379; G0463

== ENCOUNTER → 2020-01-20 16:55 | Outpatient (CLI) | payer MEDICARE, OTHER, SELFPAY ==
[2020-01-05 11:57] VITALS: BMI 49.3
--- NOTE | 2020-01-20 16:59 | CT_ITS ---
STUDY: CTA CHEST REASON FOR EXAM: Female, 69 years old. Chest pain today, recent knee surgery 01/05/20. Prior CABG, stents, hypertension. RADIATION DOSAGE (If Supplied By Facility): CTDIvol = ( 20.53 ) mGy, DLP = ( 551.62 ) mGycm TECHNIQUE: The examination was performed with the intravenous administration of 100mL Isovue 370. Post-processing of the angiographic images was performed, with multiplanar reformation and 3D reconstruction. Individualized dose optimization techniques were used for this CT. COMPARISON: None. FINDINGS: There is no evidence of pulmonary embolus. There is no evidence of thoracic aortic aneurysm or dissection. There are no pulmonary infiltrates or pleural effusions. There is no pneumothorax. The patient is status post sternotomy and coronary artery bypass. The creek coronary arteries are calcified. The heart is normal in size. There is no thoracic lymphadenopathy. Images through the upper abdomen demonstrate a small hiatal hernia. There are no destructive osseous lesions. CT/CTA Chest W/WO Contrast IMPRESSION: No evidence of pulmonary embolus or other acute thoracic disease. Small hiatal hernia. Electronically Signed: Lv Way, at 17:45 EDT Tel , Service support ,
== END ==
PROVIDERS: PCP Internal Medicine; Visit Provider Internal Medicine
DX: R07.9 Chest pain, unspecified (principal)
CPT/HCPCS: 71275; Q9967; A4216

== ENCOUNTER → 2020-01-21 07:26 | Outpatient (CLI) | payer MEDICARE, OTHER, SELFPAY ==
[2020-01-05 11:57] VITALS: BMI 49.3
--- NOTE | 2020-01-21 07:50 | VDLE_ITS ---
Reason For Study: Calf pain RIGHT LEFT GSV is normal. CFV is compressible, spontaneous, phasic, CFV is compressible, spontaneous, phasic, competent, and demonstrates normal competent and demonstrates normal augmentation. augmentation. FV is compressible, spontaneous, phasic, competent and demonstrates normal augmentation. POP V is compressible, spontaneous, phasic, competent and demonstrates normal augmentation. T/P Trunk is compressible. PTV is compressible. RT PerV is compressible. Procedure Exam performed in department. A preliminary report was called and/or faxed to [facility]. Interpretation Summary Deep veins of the right lower extremity are patent and compressible segmentally. There is no evidence of right lower extremity deep vein thrombosis. Valvular competence appears intact within the proximal deep venous system on the right . The right great saphenous vein appears patent and compressible segmentally. Ordering Physician: Vianney Peña Referring Physician: Vianney Peña Performed By: Jennifer Doherty RVT
[2020-01-21 08:31] LABS: Anion Gap 5 (5-15); BUN 19 mg/dL (7-18); BUN/Creat Ratio 15.3 RATIO (10-20); Chloride 106 mmol/L (98-107); Creatinine, Serum 1.24 mg/dL (0.55-1.02); EST Glomerular Filtration Rate 46 mL/min (>60); Est Glom Filt Rate - Afr Amer 55 mL/min (>60); Glucose 167 mg/dL (74-106); Potassium 3.8 mmol/L (3.5-5.1); Sodium Level 141 mmol/L (136-145)
[2020-01-21 08:33] LABS: D-Dimer Quantitative (DVT/PE) 3.39 FEU/ug/m (0.27-0.49)
== END ==
PROVIDERS: PCP Internal Medicine; Referring Provider Internal Medicine; Visit Provider Internal Medicine
DX: M79.661 Pain in right lower leg (principal); R07.9 Chest pain, unspecified
CPT/HCPCS: 36415; 80048; 84484; 85379; 93971

== ENCOUNTER → 2020-04-08 | Outpatient (CLI) | payer MEDICARE, OTHER, SELFPAY ==
[2020-01-05 11:57] VITALS: BMI 49.3
--- NOTE | 2020-04-08 13:18 | CT_ITS ---
STUDY: CT SCAN LOWER EXTREMITY LEFT REASON FOR EXAM: Female, 69 years old. LEFT OSTEOARTHRITIS, FELA PROTOCOL RADIATION DOSAGE (If Supplied By Facility): CTDIvol = ( 20.53 ) mGy, DLP = ( 1287.69 ) mGycm. Individualized dose optimization techniques were used for this CT.? TECHNIQUE: Multiple axial tomographic images of the hip joint, knee joint and ankle joint were obtained. Coronal and sagittal reconstruction was obtained as well. COMPARISON: None. FINDINGS: Imaging of the left hip joint was performed. There is good alignment. There is minimal joint space narrowing. There is a marked degree of joint space narrowing involving the medial compartments of knee joint with degenerative spurring seen in the distal femur and proximal tibia medially. There is evidence of an old avulsion fracture of the tibial spine. Moderate amount of joint space narrowing involving the patellofemoral joint with degenerative spurring along the anterior aspect of the distal femur. Minimal joint effusion. Imaging through the ankle demonstrates no abnormality. CT/Extremity Lower without Contra IMPRESSION: Marked degree of joint space narrowing and degenerative spurring involving the medial compartment of knee joint. Moderate amount of degenerative changes of the patellofemoral joint with degenerative spurring along the anterior aspect of the distal femur. Electronically Signed: Gerry Jarrett, at 14:27 EDT , Service support ,
== END | disposition home or self-care (01) ==
LOC: CT 13:16
PROVIDERS: PCP Internal Medicine; Referring Provider Orthopaedic Surgery; Visit Provider Orthopaedic Surgery
DX: M17.12 Unilateral primary osteoarthritis, left knee (principal)
CPT/HCPCS: 73700

== ENCOUNTER 2020-04-26 07:15 | Observation (INO) | payer MEDICARE, OTHER, SELFPAY ==
[2020-01-05 11:57] VITALS: BMI 49.3
[2020-04-19 11:10] LABS: Hematocrit 43.8 % (37-47); Hemoglobin 14.2 g/dL (12.0-15.0); Mean Corp Hgb Conc 32.4 g/dL (32-36); Mean Corpuscular Hgb 30.7 pg (27.0-32.0); Mean Corpuscular Volume 94.6 fL (81-99); Mean Platelet Vol. 9.8 fl (6.2-12.0); Platelet Count 202 K/mm3 (150-450); RBC Distribution Width CV 13.4 % (11.6-14.6); RBC Distribution Width SD 45.6 fl (35.1-43.9); Red Blood Count 4.63 M/mm3 (4.2-5.4); White Blood Count 5.4 K/mm3 (4.4-11.0)
[2020-04-19 12:03] LABS: Anion Gap 6 (5-15); BUN 16 mg/dL (7-18); Calcium,Total 8.8 mg/dL (8.5-10.1); Chloride 106 mmol/L (98-107); Creatinine, Serum 1.07 mg/dL (0.55-1.02); EST Glomerular Filtration Rate 54 mL/min (>60); Est Glom Filt Rate - Afr Amer 66 mL/min (>60); Glucose 127 mg/dL (74-106); Magnesium 2.3 mg/dL (1.6-2.6); Potassium 4.3 mmol/L (3.5-5.1); Sodium Level 142 mmol/L (136-145)
[2020-04-26] VITALS (12 sets, daily range): BP systolic 100–124; BP diastolic 47–68; PULSE 61–88; RESP 16–18; TEMP 36.3–36.6; O2SAT 94–100; BMI 49.0
--- NOTE | 2020-04-26 | KNEE_PTH ---
PATIENT: VERNON SOTOMAYOR LOC: MS3 U#:[id number] AGE/SX: 69/F ROOM: MS311 RE04/26/[address]: Dr. Caleb Espinoza DO : 1950 BED: 1 DIS: 04/27/2020 SPEC #: [id number] RECD: 04/26/20 10:57 STATUS: TAHIR REQ #: [id number] LISA: 04/26/20 00:[address]: Caleb Espinoza DEPT: SURGICAL PATHOLOGY RECD BY: Rizwan Cleary ENTERED: 04/26/20 10:57 SP TYPE: TOTAL KNEE OTHR DR: MD Dr. Vianney Roa MD Thomas Janas, PA-C Tissues: Knee, NOS Procedures: Decalcification bone/plaque Surgery Specimen Level IV HEADER OPERATION: ERAS, total knee replacement robotic arm assist PRE-OP DIAGNOSIS: Left knee osteoarthritis TISSUE SUBMITTED: Left knee bone and soft tissue MICROSCOPIC DIAGNOSIS Bone and soft tissue, left knee, total knee replacement/resection: Pieces of bone with degenerative osteoarthritic changes. Fibroadipose tissue, fibroconnective tissue and reactive synovial tissue. LYLA:сергей 04/29/20 MICROSCOPIC DESCRIPTION Slides are reviewed. GROSS DESCRIPTION Received is one container designated bone and soft tissue left knee. The specimen consists of multiple fragments of shelton-yellow bone measuring in aggregate 11 x 10 x 3 cm. Also in the specimen container are multiple fragments of yellow-white soft tissue measuring in aggregate 8 x 7 x 2.5 cm. A number of bony fragments contain articular surfaces consistent with tibial plateau and femoral condyle and displaying prominent osteophyte formation, eburnation, and bone erosion. Program Director Substance Abuse sections are submitted in two cassettes as follows: 1 - soft tissue, 2 - bone after decalcification. / LYLA:сергей 04/26/20 TC:5 CPT: 30103, 36959
[2020-04-26 06:16] LABS: Bedside Glucose 110 mg/dL (70-110)
[2020-04-26] MEDS: Acetaminophen 500 MG Tablet 1000 MG PO ×3 (06:25→21:01)
[2020-04-26] MEDS: Gabapentin 600 MG Tablet PO (06:25)
[2020-04-26] MEDS: Lactated Ringers 1,000 ML 100 ML IV (06:25)
[2020-04-26] MEDS: Lactated Ringers 1,000 ML 999 ML IV (09:30)
[2020-04-26 10:31] LABS: Hematocrit 41.3 % (37-47); Mean Corp Hgb Conc 31.5 g/dL (32-36); Mean Corpuscular Hgb 29.7 pg (27.0-32.0); Mean Corpuscular Volume 94.5 fL (81-99); Mean Platelet Vol. 9.5 fl (6.2-12.0); Platelet Count 191 K/mm3 (150-450); RBC Distribution Width CV 13.2 % (11.6-14.6); RBC Distribution Width SD 45.4 fl (35.1-43.9); Red Blood Count 4.37 M/mm3 (4.2-5.4); White Blood Count 8.6 K/mm3 (4.4-11.0)
[2020-04-26 10:42] LABS: Anion Gap 5 (5-15); BUN 14 mg/dL (7-18); BUN/Creat Ratio 12.2 RATIO (10-20); Calcium,Total 8.5 mg/dL (8.5-10.1); Chloride 107 mmol/L (98-107); Creatinine, Serum 1.15 mg/dL (0.55-1.02); EST Glomerular Filtration Rate 50 mL/min (>60); Est Glom Filt Rate - Afr Amer 60 mL/min (>60); Estimated Creatinine Clearance 37.03 ml/min; Glucose 179 mg/dL (74-106); Potassium 4.5 mmol/L (3.5-5.1); Sodium Level 139 mmol/L (136-145)
--- NOTE | 2020-04-26 11:06 | OP.PCM_ITS ---
Report of Operation Date of Procedure: 04/26/20 Pre-Operative Diagnosis: OA left knee Post-Operative Diagnosis: OA left knee Surgery/Procedure Performed:: Left TKR bus company manager: Paula Parrish Type of Anesthesia:: Spinal Anesthesiologist: Jimmy Hatfield - Admit VTE Documentation VTE Present on Admission: No VTE Mechan Device Prophylaxis: SCD's, Thigh High FRANCHESKA Hose VTE Pharm Prophylaxis ordered?: Yes
--- NOTE | 2020-04-26 11:35 | RAD_ITS ---
STUDY: X-RAY - LEFT KNEE REASON FOR EXAM: Female, 69 years old. Post op left knee TECHNIQUE: AP and lateral view(s) of the knee. COMPARISON: None. FINDINGS: Normal visualized distal femur. Normal visualized proximal tibia and fibula. Normal proximal tibiofibular articulation. The patient is status post left total knee replacement. There is good alignment. Postoperative soft tissue changes. RAD/Knee 1 or 2 Views IMPRESSION: Status post total knee replacement. There is good alignment. Postoperative soft tissue swelling. Electronically Signed: Gerry Jarrett, at 12:28 EDT , Service support ,
[2020-04-26] MEDS: Lactated Ringers 1,000 ML 125 ML IV ×2 (14:01→23:06)
[2020-04-26] MEDS: Escitalopram Oxalate 20 MG Tablet PO (14:02)
[2020-04-26] MEDS: Ezetimibe 10 MG Tablet PO (14:02)
[2020-04-26] MEDS: Cefazolin 1 GM/50 ML BAG IV ×2 (15:51→23:06)
[2020-04-26] MEDS: oxyCODONE 5 MG Tablet PO (16:02)
[2020-04-26] MEDS: Aspirin 325 MG Tablet PO (21:01)
[2020-04-26] MEDS: Atorvastatin Calcium 80 MG Tablet PO (21:01)
[2020-04-26] MEDS: Senna/Docusate Sodium 1 Tablet 2 TABLET PO (21:01)
[2020-04-26] MEDS: 0.9% Saline Lock 10 ML Syringe IV (23:59)
[2020-04-27] VITALS (7 sets, daily range): BP systolic 98–120; BP diastolic 40–57; PULSE 71–77; RESP 18; TEMP 36.4–36.7; O2SAT 95–99
[2020-04-27] MEDS: Acetaminophen 500 MG Tablet 1000 MG PO (06:21)
--- NOTE | 2020-04-27 06:43 | PN.ORTHO_ITS ---
Subjective: The patient was sitting in bed upon examination. Patient denies chest pain, shortness of breath, dizziness, lightheadedness, nausea, vomiting or calf pain. Pain is controlled on medications. No adverse events overnight. The patient states left knee is doing well. She reports minimal pain. Objective: Vital signs stable. Patient is afebrile. Patient is able to plantar flex and dorsiflex actively. Sensation is intact to light touch to saphenous, sural, superficial and deep peroneal and tibial nerve distributions. Dressing over the knee is clean, dry and intact. There was a small amount of drainage on the Telfa OpSite over the anterior aspect of the left tibia. Negative Homans bilaterally. Negative signs and symptoms of DVT. - Physical Exam Vitals/I&O's: Vital Signs Temp Pulse Resp BP Pulse Ox 97.5 F L 71 18 120/49 L 96 04/27/20 04:52 04/27/20 04:52 04/27/20 04:52 04/27/20 04:52 04/27/20 04:52 Oxygen Flow Rate (L/min) 2 Oxygen Delivery Method Nasal Cannula Weight: 121.7 kg Body Mass Index (BMI) 49.0 Finger Stick Blood Glucose 125 Intake and Output for Last 24 Hours 04/25/20 04/26/20 04/27/20 23:59 23:59 23:59 Intake Total 3567.50 / 3817.50 450 / 450 Output Total 750 / 750 Balance 3567.50 / 3517.50 -300 / -300 General: Alert, Oriented x3, Cooperative HEENT: Atraumatic, PERRLA Oral: Moist Mucosa Lungs: Normal air movement Abdomen: Soft Extremities: No Calf Tenderness, Edema Skin: Incision - Left knee and tibia Psych/Mental Status: Normal Affect, Appropriate Laboratory Results 04/26/20 10:20: WBC 8.6, RBC 4.37, Hgb 13.0, Hct 41.3, MCV 94.5, MCH 29.7, MCHC 31.5 L, RDW Std Deviation 45.4 H, RDW Coeff of Bayron 13.2, Plt Count 191, MPV 9.5 04/26/20 10:20: Sodium 139, Potassium 4.5, Chloride 107, Carbon Dioxide 27.0, Anion Gap 5, BUN 14, Creatinine 1.15 H, Estim Creat Clear Calc 37.03, Est GFR (MDRD) Af Amer 60, Est GFR (MDRD) Non-Af 50 L, BUN/Creatinine Ratio 12.2, Glucose 179 H, Calcium 8.5 04/27/20 06:25: WBC Pending, RBC Pending, Hgb Pending, Hct Pending, MCV Pending, MCH Pending, MCHC Pending, RDW Std Deviation Pending, RDW Coeff of Bayron Pending, Plt Count Pending 04/27/20 06:25: Sodium Pending, Potassium Pending, Chloride Pending, Carbon Dioxide Pending, Anion Gap Pending, BUN Pending, Creatinine Pending, Est GFR (MDRD) Af Amer Pending, Est GFR (MDRD) Non-Af Pending, BUN/Creatinine Ratio Pending, Glucose Pending, Calcium Pending Current Medications Acetaminophen (Tylenol) 1,000 mg PO Q8 [facility] Last Admin: 04/27/20 06:21 Dose: 1,000 mg Documented by: Aspirin (Aspirin) 325 mg PO BID [facility] Last Admin: 04/26/20 21:01 Dose: 325 mg Documented by: Atorvastatin Calcium (Lipitor) 80 mg PO QHS [facility] Last Admin: 04/26/20 21:01 Dose: 80 mg Documented by: Ezetimibe (Zetia) 10 mg PO DAILY [facility] Last Admin: 04/26/20 14:02 Dose: 10 mg Documented by: Escitalopram Oxalate (Lexapro) 20 mg PO DAILY [facility] Last Admin: 04/26/20 14:02 Dose: 20 mg Documented by: Sodium Chloride () 250 mls @ 15 mls/hr IV .[id number] PRN PRN Reason: Saline Flush Sodium Chloride () 250 mls @ 15 mls/hr IV .[id number] PRN PRN Reason: Additional IVPB Infusion Insulin Human Lispro (Humalog Kwikpen (Bkc)) 1 - 6 unit SC Q4H PRN PRN; Protocol PRN Reason: BG>/= 180, SEE PROTOCOL Lisinopril (Zestril) 5 mg PO DAILY [facility] Metoprolol Tartrate (Lopressor (Beta Sudha)) 50 mg PO DAILY [facility] Ondansetron HCl (Zofran) 4 mg IV Q8H PRN PRN PRN Reason: NAUSEA Oxycodone HCl (Oxyir) 5 - 10 mg PO Q4H PRN PRN PRN Reason: Pain Score 4-10/10 Last Admin: 04/26/20 16:02 Dose: 10 mg Documented by: Pantoprazole Sodium (Protonix) 40 mg PO DAILY [facility] Pot[facility] Admin: 04/26/20 18:42 Dose: 15 meq Documented by: Promethazine HCl (Phenergan) 12.5 mg IM Q6H PRN PRN; Protocol PRN Reason: NAUSEA/VOMITING Senna/Docusate Sodium (Senokot-S, Naheed-Colace) 2 tablet PO BID [facility] Last Admin: 04/26/20 21:01 Dose: 2 tablet Documented by: Sodium Chloride () 5 - 15 ml IV UD PRN PRN Reason: SALINE FLUSH Sodium Chloride () 10 - 40 ml IV UD PRN PRN Reason: SALINE FLUSH Last Admin: 04/26/20 23:59 Dose: 10 ml Documented by: Tolterodine Tartrate (Detrol La) 4 mg PO DAILY [facility] Last Admin: 04/26/20 14:00 Dose: Not Given Documented by: Medical Necessity - Tobacco Use Smoking Status: Never smoker Tobacco Use: Non-smoker Assessment/Plan 1. Status post total knee arthroplasty post operative day #1. 2. Continue pain medications: Tylenol and oxycodone. 3. DVT prophylaxis: Aspirin 325 mg twice daily. 4. PT/OT: Weightbearing as tolerated. 5. H & H: pending, Asymptomatic. 6. WBCs: pending, Afebrile. Decadron was given intraoperatively. 7. Encouraged incentive spirometry. 8. Continue postoperative medical management per medicine. 9. Postoperative drainage: The Telfa OpSite over the anterior aspect of the tibia was removed. A 2x2 and telfa opsite was reapplied. 9. Disposition: The plan will be for discharge home today after physical therapy. Prescriptions will be sent to [facility] retail pharmacy. Patient will follow up per post op instructions. The patient is scheduled for outpatient physical therapy with [facility]. Orders placed in chart. I have reviewed the [place] Automated Rx Reporting System (OARRS) report for this patient for refill pattern and other prescriber involvement as part of the appropriate surveillance for the provision of acute and chronic controlled medications. The report was requested and reviewed on the date of this entry and was considered in the prescribing process.
[2020-04-27 07:00] LABS: Anion Gap 4 (5-15); BUN 20 mg/dL (7-18); BUN/Creat Ratio 16.5 RATIO (10-20); Calcium,Total 8.7 mg/dL (8.5-10.1); Chloride 106 mmol/L (98-107); Creatinine, Serum 1.21 mg/dL (0.55-1.02); EST Glomerular Filtration Rate 47 mL/min (>60); Est Glom Filt Rate - Afr Amer 57 mL/min (>60); Estimated Creatinine Clearance 35.19 ml/min; Glucose 186 mg/dL (74-106); Potassium 4.9 mmol/L (3.5-5.1); Sodium Level 136 mmol/L (136-145)
--- NOTE | 2020-04-27 07:23 | DCINST_ITS ---
Discharge Diet: No Restrictions Discharge Activity: May Not Drive May shower in (days): 2 Ice area for (Minutes): 20 - every hour while awake. Weight Bearing Status: Weight bearing as tolerated Elevate: Operative Extremity Additional Activity Instructions:: Wear elastic stockings for 2 weeks after your surgery. Call your doctor if your incision/area has: Continuous Slow Oozing, Sudden Increased Bleeding, Increased Pain/ Swelling, Increased Redness, Foul Smelling Discharge Call your doctor if you observe: Fever of 101 or Higher, Coldness, Increased Pain, Numbness or Tingling, Change in Color, Calf discomfort, Uncontrolled pain Remove Dressing in (days):: 5 Cleanse incision/area with: Soap & Water Allergies/Adverse Reactions: Allergies Sulfa (Sulfonamide Antibiotics) Allergy (Verified 04/26/20 05:56) Other Tetanus Vaccines and Toxoid Allergy (Verified 04/26/20 05:56) Unknown flu vaccine Adverse Reaction (Uncoded 04/26/20 05:56) NEEDS FOLLOW-UP Medications to take at Discharge Escitalopram Oxalate [Lexapro] 20 mg PO DAILY 11/16/16 Ezetimibe [Zetia] 10 mg PO DAILY 11/16/16 Metoprolol Tartrate [Lopressor (beta jorge)] 50 mg PO DAILY 11/16/16 Omeprazole [Prilosec] 40 mg PO DAILY 11/16/16 Rosuvastatin Calcium [Crestor] 40 mg PO DAILY 11/16/16 Celecoxib [Celebrex] 200 mg PO DAILY 07/02/17 lisinopril 10 mg tablet 5 mg PO DAILY 07/08/18 oxybutynin chloride 15 mg tablet,extended release 24 hr 15 mg PO DAILY tab 07/08/18 Potassium Citrate [Potassium Citrate ER] 15 meq PO BID 01/01/20 Acetaminophen [Tylenol] 1,000 mg PO Q8 #100 tab 04/27/20 Aspirin 325 mg PO BID 30 Days #60 tab 04/27/20 Oxycodone [Oxyir] 5 - 10 mg PO Q4H PRN PRN 7 Days #84 tab 04/27/20 Senna/Docusate Sodium [Senokot-S] 2 tab PO BID 2 Days #10 tab 04/27/20 Bad tablePrimary Care Physician: Vianney Peña MD [Primary Care Provider] - Test Results: Test results from this visit will be discussed in further detail at your follow- up appointment, if applicable. Please Follow Up With: Brittnee at [facility] When: 05/07/2020 at 10:00 Please Follow Up With: Cholo at [facility] When: 05/20/2020 at 10:15
[2020-04-27] MEDS: Aspirin 325 MG Tablet PO (08:17)
[2020-04-27] MEDS: oxyCODONE 5 MG Tablet PO (08:20)
[2020-04-27] MEDS: Senna/Docusate Sodium 1 Tablet 2 TABLET PO (10:31)
[2020-04-27] MEDS: Pantoprazole Sodium 40 MG Tablet PO (10:31)
[2020-04-27] MEDS: Tolterodine Tartrate 4 MG CAP.SA PO (10:32)
[2020-04-27] MEDS: Ezetimibe 10 MG Tablet PO (10:33)
[2020-04-27] MEDS: Escitalopram Oxalate 20 MG Tablet PO (10:33)
--- NOTE | 2020-04-27 10:50 | CASEMGMT ---
BLAYNE ALEMAN Face to Face with patient for initial transition planning/care coordination assessment. BLAYNE ALEMAN introduced self and role at [facility]. Patient lying in bed, alert and oriented, at bedside. Patient willing to participate in assessment and is able to answer all questions appropriately. Care providers, pharmacy, and demographics verified. Patient wishes to discharge home and is setup for outpatient therapy at [facility] in [place]. Patient states she has no further needs or concerns at this time. CM to follow for discharge planning needs that may arise. PCP: Mariana Specialists: reza Espinoza; Shailesh, supervisor edging; Ellie, urologist Preferred Pharmacy: [facility] Insurance: MCR, MMO Prescription Benefit: yes Living Will/HPOA: none LNOK: Living Arrangements: Patient lives with in a 2 story home with railing. Patient states she was independent at home prior to surgery Transportation: DME/HHC: Patient states she has walker, shower chair, BSC, lift chair, grab bars, and cpap at home. Patient is scheduled to begin outpatient therapy on Sunday Disposition Plan: Patient to discharge home with outpatient therapy, family support, and follow-up plans in place. Jennifer PATEL, RN, CM
--- NOTE | 2020-04-27 10:53 | CASEMGMT ---
MATSON form completed with patient at this time. RN ASH explained MATSON form. Patient voiced understanding. MATSON form signed and copy provided to patient. Original signed form placed in chart. Patient had no further questions or concerns.
[2020-04-27 14:40] LABS: Hematocrit 36.2 % (37-47); Hemoglobin 11.6 g/dL (12.0-15.0); Mean Corpuscular Volume 93.5 fL (81-99); Mean Platelet Vol. 10.4 fl (6.2-12.0); Platelet Count 171 K/mm3 (150-450); Red Blood Count 3.87 M/mm3 (4.2-5.4); White Blood Count 10.3 K/mm3 (4.4-11.0)
== END 2020-04-27 13:21 | disposition home or self-care (01) ==
LOC: SDC 07:50 → MS3 04-27 06:45
PROVIDERS: Anesthesiology; Admitting Provider Orthopaedic Surgery; PCP Internal Medicine; Referring Provider Orthopaedic Surgery; Visit Provider Orthopaedic Surgery
PROC: 0SRD0JZ Replacement of Left Knee Joint with Synthetic Substitute, Open Approach (ICD-10-PCS; CPT 27447; principal; 2020-04-26 07:00)
DX: M17.12 Unilateral primary osteoarthritis, left knee (principal); Z11.59 Encounter for screening for other viral diseases; I25.10 Atherosclerotic heart disease of native coronary artery without angina pectoris; M19.90 Unspecified osteoarthritis, unspecified site; E11.9 Type 2 diabetes mellitus without complications; I25.2 Old myocardial infarction; I10 Essential (primary) hypertension; E78.00 Pure hypercholesterolemia, unspecified; G47.30 Sleep apnea, unspecified; Z79.899 Other long term (current) drug therapy; F32.9 Major depressive disorder, single episode, unspecified; Z95.1 Presence of aortocoronary bypass graft; K21.9 Gastro-esophageal reflux disease without esophagitis
CPT/HCPCS: 01400; 27447; 64447; S2900; 36415; 73560; 80048; 82962; 83735; 85027; 87081; 87635; 88305; 88311; 94799; 96361; 96365; 96366; 97110; 97116; 97162; 97166; 97530; 99218; 99251; C1776; J7120; A4216; G0378; G0379; G0463; U0003

== ENCOUNTER → 2020-07-13 09:11 | Outpatient (CLI) | payer MEDICARE, OTHER, SELFPAY ==
[2020-04-26 11:54] VITALS: BMI 49.0
--- NOTE | 2020-07-13 09:13 | CDU_ITS ---
Reason For Study: atherosclerosis Rt. Velocities/BP Lt. Velocities/BP Prox CCA 74.7/18.6 cm/sec. Prox CCA 99.5/22.6 cm/sec. Mid CCA 68.2/20.0 cm/sec. Mid CCA 73.4/13.4 cm/sec. Dist CCA 57.8/17.3 cm/sec. Dist CCA 79.9/23.9 cm/sec. Prox ICA 54.7/20.2 cm/sec. Prox ICA 68.2/19.9 cm/sec. Mid ICA 83.7/28.4 cm/sec. Mid ICA 121.6/43.4 cm/sec. Dist ICA 71.9/32.9 cm/sec. Dist ICA 60.4/23.9 cm/sec. Rt. ICA/CCA = 1.2. Lt. ICA/CCA = 1.7. Prox ECA 95.6/17.3 cm/sec. Prox ECA 72.1/9.5 cm/sec. Rt. Vert. 56.5/21.3 cm/sec. Lt. Vert. 34.3/7.8 cm/sec. Right Extracranial There is heterogeneous, irregular atherosclerotic plaque noted in the right common carotid artery. There is heterogeneous, irregular atherosclerotic plaque noted in the right internal carotid artery. There is intimal thickening but no significant atherosclerotic plaque noted in the right external carotid artery. Antegrade flow is noted in the right vertebral artery. Left Extracranial There is intimal thickening but no significant atherosclerotic plaque noted in the left common carotid artery. There is heterogeneous, irregular atherosclerotic plaque noted in the left internal carotid artery. There is intimal thickening but no significant atherosclerotic plaque noted in the left external carotid artery. Antegrade flow is noted in the left vertebral artery. Procedure Carotid Duplex 28713. This is a Carotid Duplex examination using B-mode, color flow and specral Doppler. The exam was diagnostic. Exam performed in department. Interpretation Summary Mild (<50%) stenosis right extracranial internal carotid. Mild (<50%) stenosis left extracranial internal carotid. Flow within the vertebral arteries is antegrade bilaterally. Ordering Physician: Vianney Peña Performed By: Manuelito Souza RVT
--- NOTE | 2020-07-13 10:12 | BI_ITS ---
MAMMOGRAPHY - BILATERAL SCREENING REASON FOR EXAM: Female, 69 years old. Routine annual screening examination. PERTINENT HISTORY: Non-contributory. TECHNIQUE: Digital bilateral breast christiana (3D mammographic acquisition) in the CC and MLO projections. 2-D mediolateral oblique (MLO) and craniocaudad (CC) views of both breasts were obtained. CAD: Full Field Digital Mammography with Computer Added Detection was performed. COMPARISON: Comparison is made with prior study dated 06/26/2019 and 06/22/2010. FINDINGS: Breast Composition: The breasts are almost entirely fatty. There are no dominant masses or suspicious calcifications. No other significant abnormalities are identified. There has been no significant change since the prior study. BI/SCREEN MAMM (CAD) W/CHRISTIANA BILAT IMPRESSION: Stable bilateral screening mammogram. Yearly follow-up mammogram recommended. (A) ASSESSMENT CATEGORY: BIRADS Category 1: Negative. A letter regarding these results will be sent to the patient by the facility within 30 days. Approximately 10% of breast cancers are not detected by mammography. A normal mammogram should not delay biopsy of a clinically suspicious abnormality. [id number] Electronically Signed: Gerry Jarrett, at 11:18 EST , Service support ,
--- NOTE | 2020-07-13 10:24 | BD_ITS ---
STUDY: DUAL ENERGY X-RAY ABSORPTIOMETRY / DXA REASON FOR EXAM: Female, 69 years old. 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 COMPARISON: Comparison is made with prior study dated 07/09/2018. FINDINGS: Lumbar Spine (L1-L4): g/cm2 (1.187) / T-score (-0.1) / Z-score (1.5) Findings are suggestive of normal bone density with a low fracture risk. Left Femur Total: g/cm2 (0.955) / T-score (-0.4) / Z-score (1.0) Left Femoral Neck: g/cm2 (0.877) / T-score (-1.2) / Z-score (0.5) Right Femur Total: g/cm2 (0.829) / T-score (-1.4) / Z-score (0.0) Right Femoral Neck: g/cm2 (0.769) / T-score (-1.9) / Z-score (-0.3) The T-Scores on the most recent prior examination were: Lumbar Spine (L1-L4): There has been improvement of bone density since the previous examination. Left Femur Total: which represents a worsening of 3.5%. Right Femur Total: which represents a worsening of 2.5%. BD/Dexa Bone Density Study IMPRESSION: The patient is considered osteopenic as outlined below according to World Hari Organization (WHO) criteria with a moderate fracture risk. There has been worsening of bone density since the previous examination. Reference Information: The T-score is the number of standard deviations above or below the standard which is normal for young adults at their peak bone mineral density. The World Health Organization (WHO) interprets the T-scores as follows: Above -1 Normal bone density Between -1 and -2.5 Osteopenia Equal to / or below -2.5 Osteoporosis As a practical clinical guideline, osteopenia may be graded as follows: Mild -1 through -1.5 Moderate -1.6 through -2.0 Severe -2.1 through -2.4 The Z-score is the number of standard deviations above or below age-matched controls. A Z-score of less than -1.5 would be considered abnormal. References: 1. NIH Osteoporosis and Related Bone Diseases www osteo.org 2. International Society for Clinical Densitometry www iscd.org 3. National Osteoporosis Foundation www nof.org Electronically Signed: Gerry Jarrett, at 14:40 EST , Service support ,
== END ==
PROVIDERS: PCP Internal Medicine; Referring Provider Internal Medicine; Visit Provider Internal Medicine
DX: I65.23 Occlusion and stenosis of bilateral carotid arteries (principal); Z12.31 Encounter for screening mammogram for malignant neoplasm of breast; Z78.0 Asymptomatic menopausal state
CPT/HCPCS: 77063; 77067; 77080; 93880

== ENCOUNTER 2021-06-05 18:55 | Emergency (ER) | payer MEDICARE, OTHER, SELFPAY ==
[2021-06-05 18:56] VITALS: BP 170/85; PULSE 95; RESP 16; TEMP 36.7; O2SAT 93; BMI 50.2
--- NOTE | 2021-06-05 19:11 | EDS_ITS ---
HPI HPI - Female History of Present Illness Chief Complaint: Flank Pain Narrative Narrative: 70-year-old female with history of urinary tract infections and kidney stones presenting with right-sided flank pain and right lower abdominal pain. She states she really started noticing this on Sunday. She is had nausea without vomiting. She denies diarrhea or constipation that is new but states she has IBS and this is always an issue. She does admit to urinary frequency and dysuria. She denies hematuria. Patient states that her urologist is Dr. Argueta. She has had kidney stones that were as large as 11 mm which did not pass spontaneously. Patient denies fever. Patient did state that when her symptoms first came on that she had some tightness around her abdomen which felt like her pancreatitis in the past. This has resolved and her pain is all in the right lower quadrant and right flank at this time. [facility] Medical History Atherosclerotic heart disease of [place] coronary artery without angina pectoris Essential hypertension GERD (gastroesophageal reflux disease) Hiatal hernia History of non-ST elevation myocardial infarction (NSTEMI) Hyperlipemia IBS (irritable bowel syndrome) Kidney stone Macular degeneration Old myocardial infarction Presence of stent in coronary artery (~12/2003) Home Medications ezetimibe 10 mg PO DAILY 11/16/16 [History Last Taken Unknown] metoprolol tartrate 50 mg PO DAILY 11/16/16 [History Last Taken 04/26/20] omeprazole 40 mg PO DAILY 11/16/16 [History Last Taken 04/26/20] rosuvastatin 40 mg PO DAILY 11/16/16 [History Last Taken Unknown] aspirin 81 mg tablet,delayed release 81 mg PO DAILY #1 tab 08/02/20 [Rx Last Taken Unknown] bone meal-vitamin D2 tablet 1 tab PO DAILY tab 02/10/21 [History Last Taken Unknown] cholecalciferol (vitamin D3) 25 mcg (1,000 unit) tablet 25 mcg PO DAILY 02/10/21 [History Last Taken Unknown] coenzyme Q10 100 mg tablet 100 mg PO DAILY 02/10/21 [History Last Taken Unknown] cranberry 400 mg capsule 400 mg PO DAILY 02/10/21 [History Last Taken Unknown] lisinopril 5 mg tablet 5 mg PO DAILY tab 02/10/21 [History Last Taken Unknown] onydecggynww-ddduyaqo-smrvxxq-folic acid 400 mcg-vit K1 20 mcg tablet 1 tab PO DAILY 02/10/21 [History Last Taken Unknown] omega-3 fatty acids 1,000 mg capsule 1,000 mg PO DAILY 02/10/21 [History Last Taken Unknown] oxybutynin chloride 15 mg tablet,extended release 24 hr 30 mg PO DAILY tab 02/10/21 [History Last Taken Unknown] potassium citrate 15 mEq (1,620 mg) tablet,extended release 15 meq PO DAILY tab 02/10/21 [History Last Taken Unknown] vit C 250 mg-vit E 90 mg-zinc 40 mg-copper 1 rw-ehemsq-ynaism capsule 1 tab PO DAILY cap 02/10/21 [History Last Taken Unknown] Allergy/AdvReac Type Severity Reaction Status Date / Time Sulfa (Sulfonamide Allergy Other Verified 06/05/21 19:03 Antibiotics) Tetanus Vaccines and Toxoid Allergy Unknown Verified 06/05/21 19:03 flu vaccine AdvReac NEEDS Uncoded 06/05/21 19:03 FOLLOW-UP Family History Father CAD (coronary artery disease) Mother CAD (coronary artery disease) History of coronary artery bypass surgery Brother CVA (cerebral vascular accident) CAD (coronary artery disease) History of coronary artery bypass surgery Surgical History History of cholecystectomy History of coronary artery bypass surgery (~05/21/03) History of left cataract extraction History of left knee replacement History of right cataract extraction History of right knee joint replacement Presence of coronary angioplasty implant and graft (~12/2003) Social History Smoking Status: Never smoker alcohol intake: never substance use type: does not use caffeine: Yes Type: carbonated beverages Number of servings: 2 ROS ROS ED Constitutional Constitutional ED: Denies chills or fever(s) Eyes Eyes: Denies blurry vision or diplopia ENT ENT ED: Denies rhinorrhea or sore throat Cardiovascular Cardiovascular: Denies chest pain or palpitations Respiratory/Chest Respiratory/Chest: Denies cough or dyspnea Gastrointestinal Gastrointestinal: Reports abdominal pain and nausea; Denies constipation or diarrhea Genitourinary Genitourinary ED: Reports dysuria and urinary frequency; Denies hematuria Integumentary Denies Abrasions or rash Neurologic Neurologic: Denies headache(s) or paresthesias EXAM Physical Exam Const Vital Signs: 06/05/21 18:56 Temperature 98.0 F Temperature Source Temporal Pulse Rate 95 Respiratory Rate 16 Blood Pressure 170/85 H Blood Pressure Mean 113 Pulse Ox 93 Oxygen Delivery Method Room Air Positive well nourished General Appearance ED: NAD; Negative for pallor HEENT Reports moist mucous membranes trauma Eyes PERRL and EOMs intact bilaterally Resp normal respiratory effort and clear to auscultation bilaterally Cardio regular rate and regular rhythm GI GI Narrative: Tenderness to palpation right side of abdomen. Negative Marion sign. No CVA tenderness noted. no CVA tenderness Extremity normal to inspection and full ROM Neuro oriented x3 Sensorium / Orientation: alert Psych mental status grossly normal Skin no rashes or lesions noted General Skin Exam: Negative for jaundice or pallor MDM MDM MDM Narrative Medical decision making narrative: Patient was given morphine and Zofran for pain. I obtained lab work and her CBC shows no leukocytosis and her hemoglobin hematocrit are stable. Platelets are normal. Creatinine 1.04 this is actually lower than previously. Patient having slightly elevated bilirubin at 1.4, AST 62, ALT 58. These are only minimally elevated. She does not have any right upper quadrant pain. She does complain of right lower abdominal pain and right flank pain without CVA tenderness. I did obtain a CT abdomen pelvis without contrast which shows no acute kidney stones. There is a nonobstructing punctate stone in the lower pole of the left kidney which is on the side opposite of her pain. Lipase is negative. patient is currently trying to give a urine sample. Patient will be signed out to incoming ED physician for follow-up. Impression: 1. Right flank pain 2. Elevated LFTs Lab Data Labs: Laboratory Results - last 24 hr 06/05/21 06/05/21 19:35 19:35 WBC 6.1 RBC 4.62 Hgb 13.9 Hct 42.0 MCV 90.9 MCH 30.1 MCHC 33.1 RDW Std Deviation 42.3 RDW Coeff of Bayron 12.9 Plt Count 231 MPV 10.9 Immature Gran % (Auto) 0.500 Neut % (Auto) 67.9 Lymph % (Auto) 20.9 Schuyler % (Auto) 7.9 Eos % (Auto) 2.3 Baso % (Auto) 0.5 Absolute Neuts (auto) 4.1 Absolute Lymphs (auto) 1.27 Nucleated RBC % 0 Sodium 139 Potassium 4.1 Chloride 105 Carbon Dioxide 27.0 Anion Gap 7 BUN 13 Creatinine 1.04 H Estim Creat Clear Calc 38.52 Est GFR (MDRD) Af Amer 67 Est GFR (MDRD) Non-Af 56 L BUN/Creatinine Ratio 12.5 Glucose 151 H Calcium 8.9 Total Bilirubin 1.40 H AST 62 H ALT 58 H Alkaline Phosphatase 102 Total Protein 7.0 Albumin 3.0 L Globulin 4.0 Albumin/Globulin Ratio 0.8 L Lipase 50 L Radiography Diagnostic Testing: Clinical Impression(s) from Imaging Studies Abdomen/Pelvis CT 06/05/21 20:19 IMPRESSION: Punctate nonobstructing stone lower pole right kidney. No definite stones in the left kidney. No hydronephrosis. Electronically Signed: Ian Kasper MD at 20:47 EDT Tel , Service support , Discharge Plan Triage Chief Complaint: Flank Pain ED Provider: Neri Vaughan Dx/Rx/DC Orders Prescriptions: No Action oxybutynin chloride ER 15 mg tablet,extended release 24 hr 15 mg tablet extended release 24hr 30 mg PO DAILY RF: 0 aspirin 81 mg tablet,delayed release (DR/EC) 81 mg PO DAILY Qty: 1 RF: 0 lisinopril 5 mg tablet 5 mg PO DAILY RF: 0 PreserVision AREDS-2 250-90-40-1 mg capsule 1 tab PO DAILY RF: 0 cholecalciferol (vitamin D3) 25 mcg (1,000 unit) tablet 25 mcg PO DAILY RF: 0 bone meal-vitamin D2 Tablet 1 tab PO DAILY RF: 0 cranberry 400 mg capsule 400 mg PO DAILY RF: 0 coenzyme Q10 100 mg tablet 100 mg PO DAILY RF: 0 omega-3 fatty acids 1,000 mg capsule 1,000 mg PO DAILY RF: 0 One-A-Day Women's 50 Plus 400-20 mcg tablet 1 tab PO DAILY RF: 0 omeprazole 40 MG capsule 40 mg PO DAILY RF: 0 metoprolol tartrate 50 MG tablet 50 mg PO DAILY RF: 0 ezetimibe 10 MG tablet 10 mg PO DAILY RF: 0 rosuvastatin 40 MG tablet 40 mg PO DAILY RF: 0 potassium citrate 15 mEq tablet extended release 15 meq PO DAILY RF: 0 Primary Care Provider: Vianney Peña
[2021-06-05 19:48] LABS: Absolute Lymphocyte Count 1.27 X10^3/uL (0.83-4.51); Absolute Neutrophil Count 4.1 X10^3/uL (2.0-7.7); Basophil# 0.03 X10^3/uL; Basophil% 0.5 % (0-1); Eosinophil# 0.14 X10^3/uL; Eosinophils% 2.3 % (0-5); Hemoglobin 13.9 g/dL (12.0-15.0); Lymphocyte # 1.27 X10^3/ul (0.83-4.51); Lymphocyte % 20.9 % (19-41); Mean Corp Hgb Conc 33.1 g/dL (32-36); Mean Corpuscular Hgb 30.1 pg (27.0-32.0); Mean Corpuscular Volume 90.9 fL (81-99); Mean Platelet Vol. 10.9 fl (6.2-12.0); Monocyte# 0.48 X10^3/uL; Monocyte% 7.9 % (0-10); NRBC Flagged by Analyzer 0 % (0-5); Neutrophil # 4.13 X10^3/uL (2.7-7.7); Neutrophil % 67.9 % (47-70); Platelet Count 231 K/mm3 (150-450); RBC Distribution Width CV 12.9 % (11.6-14.6); RBC Distribution Width SD 42.3 fl (35.1-43.9); Red Blood Count 4.62 M/mm3 (4.2-5.4); White Blood Count 6.1 K/mm3 (4.4-11.0)
[2021-06-05] MEDS: Morphine 4 MG/ML Syringe IV (19:52)
[2021-06-05] MEDS: Ondansetron 4 MG/2 ML Vial IV (19:52)
[2021-06-05 20:10] LABS: ALB/GLOB Ratio 0.8 RATIO (0.9-2.4); AST(SGOT) 62 U/L (15-37); Alanine Aminotransfer ALT/SGPT 58 U/L (13-56); Alkaline Phosphatase 102 U/L (45-117); Anion Gap 7 (5-15); BUN 13 mg/dL (7-18); BUN/Creat Ratio 12.5 RATIO (10-20); Calcium,Total 8.9 mg/dL (8.5-10.1); Chloride 105 mmol/L (98-107); Creatinine, Serum 1.04 mg/dL (0.55-1.02); EST Glomerular Filtration Rate 56 mL/min (>60); Est Glom Filt Rate - Afr Amer 67 mL/min (>60); Estimated Creatinine Clearance 38.52 ml/min; Glucose 151 mg/dL (74-106); Lipase 50 U/L (73-393); Potassium 4.1 mmol/L (3.5-5.1); Sodium Level 139 mmol/L (136-145)
--- NOTE | 2021-06-05 20:19 | CT_ITS ---
EXAM: CT Abdomen and Pelvis Without Intravenous Contrast CLINICAL INDICATION: 70 years old, Female; right flank pain TECHNIQUE: Helically acquired images were obtained of the abdomen and pelvis without intravenous contrast. This CT exam was performed using one or more of the following dose reduction techniques: automated exposure control, adjustment of the mA and/or kV according to patient size, and/or use of iterative reconstruction technique. This report was created using Instant [employer] report generation technology. COMPARISON: None. FINDINGS: Lower thorax: Linear atelectasis or fibrosis in the lung bases. Small hiatal hernia. No cardiomegaly. No significant pericardial effusion. ABDOMEN: Liver: Fatty infiltration of the liver. Gallbladder and bile ducts: Cholecystectomy. No intra- or extrahepatic biliary ductal dilation. Pancreas: Unremarkable. No focal cystic mass. Spleen: Unremarkable. Normal size without focal cystic or solid mass. Adrenals: Unremarkable. No nodules. Kidneys and ureters: Punctate nonobstructing stone lower pole right kidney. No definite stones in the left kidney. No hydronephrosis. Stomach and bowel: Unremarkable. No stomach or bowel distention. No focal inflammatory change. PELVIS: Appendix: Normal appendix. Bladder: Unremarkable. Reproductive: Hysterectomy. ABDOMEN and PELVIS: Intraperitoneal space: Unremarkable. No ascites or other fluid collection. No free air. Bones/joints: Unremarkable. No suspicious lytic or blastic abnormality. Soft tissues: Unremarkable. No discrete abdominal or pelvic wall hernia. Vasculature: Atherosclerotic disease. Abdominal aorta is non-dilated. Lymph nodes: Unremarkable. No enlarged lymph nodes. CT/Abdomen/Pelvis without Cont IMPRESSION: Punctate nonobstructing stone lower pole right kidney. No definite stones in the left kidney. No hydronephrosis. Electronically Signed: Ian Kasper MD at 20:47 EDT Tel , Service support ,
[2021-06-05] MEDS: 0.9% Normal Saline 1,000 ML 999 ML IV (22:36)
[2021-06-05 22:45] LABS: Mucous, Urine 0 SEEN /hpf (<or=2+)
[2021-06-05 22:50] LABS: Color, Urine Yellow (Yellow); Glucose, Dipstick Normal (Normal); Ketone-Dipstick 5 mg/dl (Negative); Leukocyte Esterase-Dipstick 100 /ul (Negative); Nitrite-Dipstick Positive (Negative); Occult Blood-Urine 25 /ul (Negative); Protein-Dipstick 15 mg/dl (Negative); Specific Gravity, Urine 1.025 (1.002-1.030); Urine Bilirubin Dipstick Negative (Negative); Urine Clarity Cloudy (Clear); Urine Urobilinogen 1 mg/dl (Normal)
[2021-06-05 23:14] LABS: Red Blood Cells-Urine 5-10 SEEN /hpf (0-5); White Blood Cells 25-50 SEEN /hpf (0-5)
[2021-06-05 23:15] LABS: Bacteria 2+ /hpf (None Seen); Squamous Epithelial Cells - UA 10-25 SEEN /hpf (5-10)
[2021-06-06] MEDS: AMOXICILLIN 500 MG CAPSULE PO (00:11)
[2021-06-06 00:16] VITALS: PULSE 76; RESP 16; O2SAT 98
== END 2021-06-06 00:16 | disposition home or self-care (01) ==
PROVIDERS: Emergency Provider Student in an Organized Health Care Education/Training Program; PCP Internal Medicine
DX: R10.9 Unspecified abdominal pain (principal); R79.89 Other specified abnormal findings of blood chemistry; I25.10 Atherosclerotic heart disease of native coronary artery without angina pectoris; I10 Essential (primary) hypertension; K21.9 Gastro-esophageal reflux disease without esophagitis; E78.5 Hyperlipidemia, unspecified; Z87.442 Personal history of urinary calculi; Z79.899 Other long term (current) drug therapy
CPT/HCPCS: 74176; 80053; 81001; 83690; 85025; 96361; 96374; 96375; 99285; J7030; A4216; J2405

== ENCOUNTER → 2021-07-19 12:24 | Outpatient (CLI) | payer MEDICARE, OTHER, SELFPAY ==
[2021-02-10 10:51] VITALS: BMI 52.1
--- NOTE | 2021-07-19 12:37 | BI_ITS ---
MAMMOGRAPHY - BILATERAL SCREENING 3-D TOMOSYNTHESIS REASON FOR EXAM: Female, 70 years old. SCREENING PERTINENT HISTORY: No significant family history. TECHNIQUE: 2-D mammograms and 3-D Tomosynthesis of the breast (s) were performed. CAD was performed. COMPARISON: 07/13/2020 FINDINGS: The breast composition is almost entirely fat. Scattered benign calcifications are seen. No dense spiculated masses or suspicious microcalcifications are identified. No architectural distortion is identified. There is no skin thickening or retraction. There has been no significant change since the prior study. BI/SCRN MAMM (CAD)W/CHRISTIANA BILAT IMPRESSION: No mammographic signs of malignancy. Routine yearly mammograms recommended. ASSESSMENT CATEGORY: BIRADS Category 1: Negative. A letter regarding these results will be sent to the patient by the facility within 30 days. FOLLOW UP RECOMMENDATION: Yearly follow up mammogram recommended. (A) Approximately 10% of breast cancers are not detected by mammography. A normal mammogram should not delay biopsy of a clinically suspicious abnormality. Electronically Signed: Kendall Awad MD at 16:12 EST , Service support ,
== END ==
PROVIDERS: PCP Internal Medicine; Referring Provider Internal Medicine; Visit Provider Internal Medicine
DX: Z12.31 Encounter for screening mammogram for malignant neoplasm of breast (principal)
CPT/HCPCS: 77063; 77067

== ENCOUNTER → 2022-03-21 | Outpatient (CLI) | payer MEDICARE, OTHER, SELFPAY | END | disposition home or self-care (01) | LOC: SL 22:28 | PROVIDERS: PCP Internal Medicine; Visit Provider Internal Medicine | DX: G47.33 Obstructive sleep apnea (adult) (pediatric) (principal) | CPT/HCPCS: 95810 ==

== ENCOUNTER 2022-05-26 09:48 | Outpatient (CLI) | payer MEDICARE, OTHER, SELFPAY ==
--- NOTE | 2022-05-26 09:50 | US_ITS ---
STUDY: ABDOMINAL ULTRASOUND - RIGHT UPPER QUADRANT REASON FOR VISIT: Female, 71 years old KYLE (nonalcoholic steatohepatitis) TECHNIQUE: Ultrasound evaluation of the right upper quadrant was performed with real-time and static arvizu-scale imaging. TECHNICAL QUALITY: Adequate. COMPARISON: Comparison is made with prior examination dated 02/13/2019. FINDINGS: Liver: The liver measures 15.8 cm. There is increased echogenicity consistent with fatty infiltration. The bile ducts are within normal limits. There is hepatic color flow. The direction of portal flow is hepatopetal. There is no demonstrated mass lesion. Gallbladder: The patient is status post cholecystectomy. Common Bile Duct (C.B.D.): The common bile duct measures 7 mm. Pancreas: Normal size of the head, body and tail of the pancreas. There is no demonstrated pancreatic mass or cyst. Right Kidney: Normal size of the right kidney. The right kidney measures 10.9 cm x 5.5 cm x 4.7 cm. Normal renal cortex. The right cortex measures 1.4 cm. There is no demonstrated renal mass or cyst. There is no right hydronephrosis. US/Abdomen Limited IMPRESSION: There is diffuse fatty infiltration of the liver. Electronically Signed: Gerry Jarrett MD at 11:21 EDT ,
--- NOTE | 2022-05-26 09:51 | US_ITS ---
STUDY: ABDOMINAL ULTRASOUND - ELASTOGRAPHY REASON FOR VISIT: Female, 71 years old. KYLE TECHNIQUE: Liver stiffness measurements were obtained on a Indoor[employer]las RS 85 ultrasound machine using a CA 1-7 probe following the SRU guidelines. 3 measurements were obtained using a 2-D-SWE method. The IQR/M was 22% suggesting a quality data set. TECHNICAL QUALITY: Adequate. COMPARISON: Comparison is made with prior study done earlier in the day. FINDINGS: Liver: Fatty infiltration of the liver. Median liver stiffness measured 9 kPa. US/Elastography Parenchyma/Organ IMPRESSION: Liver stiffness measures 9 kPa compatible with F2-F3 (Mild to moderate liver fibrosis) Metavir score. Electronically Signed: Gerry Jarrett MD at 11:22 EDT ,
== END 2022-05-26 23:59 | disposition home or self-care (01) ==
LOC: US 09:49
PROVIDERS: PCP Internal Medicine; Referring Provider Internal Medicine; Visit Provider Internal Medicine
DX: K75.81 Nonalcoholic steatohepatitis (NASH) (principal)
CPT/HCPCS: 76705; 76981

== ENCOUNTER → 2022-07-25 | Outpatient (CLI) | payer MEDICARE, OTHER, SELFPAY ==
--- NOTE | 2022-07-25 09:30 | BI_ITS ---
MAMMOGRAPHY - BILATERAL SCREENING REASON FOR EXAM: Female, 71 years old. Routine annual screening examination. PERTINENT HISTORY: Non-contributory. TECHNIQUE: Digital bilateral breast christiana (3D mammographic acquisition) in the CC and MLO projections. 2-D mediolateral oblique (MLO) and craniocaudad (CC) views of both breasts were obtained. CAD: Full Field Digital Mammography with Computer Added Detection was performed. COMPARISON: Comparison is made with prior study dated 07/19/2021 and 07/13/2020. FINDINGS: Breast Composition: The breasts are almost entirely fatty. There are no dominant masses or suspicious calcifications. No other significant abnormalities are identified. There has been no significant change since the prior study. BI/SCRN MAMM (CAD)W/CHRISTIANA BILAT IMPRESSION: Stable bilateral screening mammogram. Yearly follow-up mammogram recommended. (A) ASSESSMENT CATEGORY: BIRADS Category 1: Negative. A letter regarding these results will be sent to the patient by the facility within 30 days. Approximately 10% of breast cancers are not detected by mammography. A normal mammogram should not delay biopsy of a clinically suspicious abnormality. [id number] Electronically Signed: Gerry Jarrett MD at 10:38 EST ,
--- NOTE | 2022-07-25 09:36 | BD_ITS ---
STUDY: DUAL ENERGY X-RAY ABSORPTIOMETRY / DXA REASON FOR EXAM: Female, 71 years old. [id number] TECHNIQUE: Bone Mineral Density (BMD) measurements of lumbar spine and bilateral hips were obtained. COMPARISON: Comparison is made with prior study 07/13/2020. FINDINGS: Lumbar Spine (L1-L4): g/cm2 (0.912) / T-score (-1.3) / Z-score (0.9) Findings are suggestive of osteopenia with a low fracture risk. Left Femur Total: g/cm2 (0.949) / T-score (0.1) / Z-score (1.6) Left Femoral Neck: g/cm2 (0.706) / T-score (-1.3) / Z-score (0.6) Right Femur Total: g/cm2 (0.864) / T-score (-0.6) / Z-score (0.9) Right Femoral Neck: g/cm2 (0.642) / T-score (-1.9) / Z-score (0.0) The T-Scores on the most recent prior examination were: Lumbar Spine (L1-L4): There has been worsening of bone density since the previous examination. Left Femur Total: which represents an improvement of 6.5%. Right Femur Total: which represents an improvement of 12.4%. BD/Dexa Bone Density Study IMPRESSION: The patient is considered osteopenic as outlined below according to World Hari Organization (WHO) criteria with a moderate fracture risk. There has been improvement of bone density since the previous examination. Reference Information: The T-score is the number of standard deviations above or below the standard which is normal for young adults at their peak bone mineral density. The World Health Organization (WHO) interprets the T-scores as follows: Above -1 Normal bone density Between -1 and -2.5 Osteopenia Equal to / or below -2.5 Osteoporosis As a practical clinical guideline, osteopenia may be graded as follows: Mild -1 through -1.5 Moderate -1.6 through -2.0 Severe -2.1 through -2.4 The Z-score is the number of standard deviations above or below age-matched controls. A Z-score of less than -1.5 would be considered abnormal. References: 1. NIH Osteoporosis and Related Bone Diseases www osteo.org 2. International Society for Clinical Densitometry www iscd.org 3. National Osteoporosis Foundation www nof.org Electronically Signed: Gerry Jarrett MD at 15:25 EST ,
== END | disposition home or self-care (01) ==
LOC: OPBD 09:27
PROVIDERS: PCP Internal Medicine; Referring Provider Internal Medicine; Visit Provider Internal Medicine
DX: Z12.31 Encounter for screening mammogram for malignant neoplasm of breast (principal); Z78.0 Asymptomatic menopausal state
CPT/HCPCS: 77063; 77067; 77080

== ENCOUNTER → 2022-10-17 | Outpatient (CLI) | payer MEDICARE, SELFPAY ==
--- NOTE | 2022-10-17 06:22 | ECHOCS_ITS ---
Reason For Study: PRE=OP Procedure This was a 2D Doppler, Color Flow transthoracic echocardiogram. The study was technically difficult. Exam performed in department. Left Ventricle Normal LV size. Left ventricular systolic function is normal. The estimated ejection fraction is 65 %. No evidence for diastolic dysfunction. No regional wall motion abnormalities noted. Right Ventricle Normal RV size. Normal systolic function. Atria Normal left atrium. Normal right atrium. No doppler evidence for ASD. Bubble contrast study negative for right to left interatrial shunt. Mitral Valve There is no mitral annular calcification. Normal mitral valve. Trivial mitral valve insufficiency. Tricuspid Valve Normal tricuspid valve. Trivial tricuspid valve insufficiency. Right ventricular systolic pressure estimated to be 30 mmHg. Aortic Valve Trisinus/trileaflet aortic valve. Normal aortic valve. Pulmonic Valve The pulmonic valve is not well visualized. Great Vessels Normal sized aortic root. Pericardium/Pleural No pericardial effusion. Medication Diluted definity 3ml given slow IV push to enhance endocardial definition. Performed a rapid injection of agitated mix of 9 cc saline and 1cc air to assess for atrial septal defect. MMode/2D Measurements & Calculations LVIDd: 3.8 cm IVSd: 1.0 cm Ao root diam: 3.2 cm LVIDs: 2.6 cm LVPWd: 1.00 cm RVDd: 2.9 cm FS: 30.9 % LAV(MOD-bp): 31.6 ml LVAd ap4: 27.4 cm2 SV(MOD-sp4): 50.6 ml LAV(MOD-bp) Indexed: 14.9 ml/m2 LVLd ap4: 7.6 cm LAV(MOD-sp2): 30.4 ml EDV(MOD-sp4): 80.6 ml LAV(MOD-sp4): 30.5 ml EDV(sp4-el): 84.1 ml LVAs ap4: 14.8 cm2 LVLs ap4: 5.8 cm ESV(MOD-sp4): 30.0 ml ESV(sp4-el): 31.8 ml EF(MOD-sp4): 62.8 % EF(sp4-el): 62.1 % SV(sp4-el): 52.2 ml LA A4 area: 14.3 cm2 LA dimension(2D): 3.8 cm RA A4 area: 10.5 cm2 Time Measurements MV dec time: 0.15 sec Doppler Measurements & Calculations MV E max amilcar: 74.2 cm/sec Lat Peak E' Amilcar: 9.8 cm/sec Med Peak E' Amilcar: 11.3 cm/sec MV A max amilcar: 101.9 cm/sec E/E' lat: 7.6 E/E' med: 6.6 MV E/A: 0.73 Ao V2 max: 115.8 cm/sec LV V1 max: 99.8 cm/sec PA V2 max: 106.0 cm/sec Ao max P.4 mmHg LV V1 max P.0 mmHg TR max amilcar: 258.2 cm/sec TR max P.7 mmHg ECHO/Echo Complete W/ Contrast Interpretation Summary The study was technically difficult. Left ventricular systolic function is normal. The estimated ejection fraction is 65 %. Trivial mitral valve insufficiency. Trivial tricuspid valve insufficiency. Right ventricular systolic pressure estimated to be 30 mmHg. No evidence for diastolic dysfunction. Ordering Physician: Ian Santamaria/Jose Miguel Cash Referring Physician: LORRAINE KING Performed By: Kimberlee Donnelly RDCS
--- NOTE | 2022-10-17 09:04 | STRESSREP ---
Stress Test Report Date: 10-17-2022 Procedure: Pharmacologic stress nuclear imaging study Indications: Chest pain; CAD; PCI; CABG; hyperlipidemia; hypertension; preoperative cardiovascular evaluation Consent: Per the patient Procedure: The patient underwent pharmacologic (Regadenoson 0.4mg ) evaluation with a peak heart rate of 114 beats per minute (76%predicted maximal heart rate) and a resting blood pressure of 128/62 mmHg and a peak blood pressure of 128/62 mmHg. The baseline ECG demonstrated normal sinus rhythm; incomplete right bundle branch block pattern. The peak pharmacologic ECG demonstrated no obvious ECG changes. There were no cardiac dysrhythmias pretest, during pharmacologic infusion, or recovery. There was no complaint of chest discomfort during pharmacologic infusion or recovery. The examination was discontinued secondary to completion of protocol. Impression: 1. Pharmacologic (Regadenoson) evaluation 2. Peak pharmacologic ECG with continued incomplete right bundle branch block pattern with no obvious ECG changes. 3. There were no cardiac dysrhythmias pretest, during pharmacologic infusion, or recovery. 4. Nuclear images pending Myocardial perfusion imaging study: Technique: The patient was injected with 15.0 millicuries of technetium 99m Cardiolite and subsequently rest SPECT Cardiolite nuclear imaging was obtained in the horizontal long, vertical long, and short axis views. The patient underwent pharmacologic (Regadenoson) evaluation with a peak heart rate of 114 beats per minute (76% percent predicted maximal heart rate) and a resting blood pressure of 128/62 mmHg and a peak blood pressure of 128/62 mmHg. The patient was injected with 44.9 millicuries of technetium 99m Cardiolite and subsequently stress SPECT Cardiolite nuclear imaging was obtained in the horizontal long, vertical long, and short axis views. A gated Cardiolite study at peak stress was obtained. Interpretation: Rest and stress SPECT Cardiolite nuclear imaging status post realignment, normalization, and attenuation correction demonstrate relative uniform tracer uptake and myocardial perfusion appearing within normal limits. There is end systolic thickening and brightening. The gated Cardiolite study demonstrates myocardial thickening and inward wall motion. The reported LVEF is 81%. Impression: 1. Rest and stress SPECT Cardiolite nuclear imaging demonstrate relative uniform tracer uptake and myocardial perfusion appearing within normal limits. 2. The gated Cardiolite study reports an LVEF of 81%. This note was generated with [employer] software. It may contain incorrect words, spelling, and punctuation that were not noted in checking the note before signing.
== END | disposition home or self-care (01) ==
LOC: CVS 06:22
PROVIDERS: PCP Internal Medicine; Referring Provider Nurse Practitioner Family; Visit Provider Nurse Practitioner Family
DX: Z01.818 Encounter for other preprocedural examination (principal); R07.9 Chest pain, unspecified; Z95.5 Presence of coronary angioplasty implant and graft; Z95.1 Presence of aortocoronary bypass graft; I10 Essential (primary) hypertension; E78.5 Hyperlipidemia, unspecified; I25.10 Atherosclerotic heart disease of native coronary artery without angina pectoris
CPT/HCPCS: 78452; 93017; 93306; A9500; Q9957; A4216; C8929; J2785

== ENCOUNTER → 2023-01-11 | Outpatient (CLI) | payer MEDICARE, SELFPAY ==
--- NOTE | 2023-01-11 08:53 | ART_ITS ---
Reason For Study: Peripheral artery disease Procedure A bilateral lower extremity continuous wave Doppler with analog waveform analysis,segmental pressures,and ankle brachial indexes without exercise. Left Segmental Pressures Left brachial= 124mmHg. Left posterior tibial artery = 158mmHg. Left dorsalis pedis artery = 145mmHg. Left digit = 90 mmHg. The left dorsalis pedis waveforms are triphasic. The left posterior tibial artery waveforms are triphasic. Right Segmental Pressures Right brachial= 129mmHg. Right posterior tibial artery = 159mmHg. Right dorsalis pedis artery = 135mmHg. Right digit = 110 mmHg. The right dorsalis pedis waveforms are triphasic. The right posterior tibial artery waveforms are triphasic. Indices The right ankle brachial index by the dorsalis pedis is 1.05. The right ankle brachial index by the posterior tibial artery is 1.23. The right digital-brachial index is 0.85. The left ankle brachial index by the dorsalis pedis is 1.12. The left ankle brachial index by the posterior tibial artery is 1.22. The left digital-brachial index is 0.70. VL/Lower Ext Art Exam w/o Exercis Interpretation Summary Normal right lower extremity posterior tibialis and dorsalis pedis ankle-brachi al indices of 1.23 and 1.05 respectively with normal triphasic Doppler waveforms Normal right digital brachial index of 0.85 Normal left lower extremity posterior tibialis and dorsalis pedis ankle-brachia l indices of 1.22 and 1.12 respectively with normal triphasic Doppler waveforms Borderline abnormal left digital brachial index of 0.7. Possible mild distal sm all vessel disease but clinical correlation would be indicated, possible temperature effect Ordering Physician: Vianney Peña Referring Physician: Vianney Peña M.D. Performed By: Jennifer Doherty RVT
== END | disposition home or self-care (01) ==
LOC: CVS 08:52
PROVIDERS: PCP Internal Medicine; Referring Provider Internal Medicine; Visit Provider Internal Medicine
DX: I73.9 Peripheral vascular disease, unspecified (principal)
CPT/HCPCS: 93923

== ENCOUNTER 2023-07-11 10:49 | Outpatient (CLI) | payer MEDICARE, SELFPAY ==
[2023-07-11 12:38] LABS: Hematocrit 49.2 % (37-47); Hemoglobin 15.5 g/dL (12.0-15.0); Mean Corp Hgb Conc 31.5 g/dL (32-36); Mean Corpuscular Hgb 29.6 pg (27.0-32.0); Mean Corpuscular Volume 94.1 fL (81-99); Mean Platelet Vol. 10.5 fl (6.2-12.0); Platelet Count 248 K/mm3 (150-450); RBC Distribution Width SD 48.7 fl (35.1-43.9); Red Blood Count 5.23 M/mm3 (4.2-5.4); White Blood Count 6.5 K/mm3 (4.4-11.0)
[2023-07-11 13:01] LABS: Vitamin B12 360 pg/mL (211-911); Vitamin D,25 Hydroxy 40.2 ng/mL
[2023-07-11 13:05] LABS: ALB/GLOB Ratio 0.8 RATIO (0.9-2.4); AST(SGOT) 34 U/L (15-37); Alanine Aminotransfer ALT/SGPT 49 U/L (13-56); Albumin, Serum 3.3 g/dL (3.2-5.0); Alkaline Phosphatase 119 U/L (45-117); Anion Gap 9 (5-15); BUN 20 mg/dL (7-18); BUN/Creat Ratio 17.2 RATIO (10-20); Chloride 107 mmol/L (98-107); Cholesterol 143 mg/dL (200); Creatinine, Serum 1.16 mg/dL (0.55-1.02); EST Glomerular Filtration Rate 49 mL/min (>60); Est Glom Filt Rate - Afr Amer 59 mL/min (>60); Ferritin 33 ng/mL (8-252); Glucose 151 mg/dL (74-106); High Density Lipoprotein 52 mg/dL; Iron 89 ug/dL (50-170); Iron Binding Capacity,Total 396 ug/dL (250-450); Magnesium 2.2 mg/dL (1.6-2.6); PERCENT IRON SATURATION 22.5 % (15.0-55.0); Protein, Total 7.3 g/dL (6.4-8.2); Sodium Level 142 mmol/L (136-145); Thyroid Stim Hormone (TSH) 1.37 uIU/mL (0.358-3.74); Triglycerides 158 mg/dL; Very Low Density Lipoprotein 32 mg/dL (5-40)
[2023-07-11 13:50] LABS: Hemoglobin A1c 5.6 % (3.8-5.6)
[2023-07-11 14:06] LABS: PTHIN 130.4 pg/mL (18.4-80.1)
[2023-07-24 17:08] LABS: Vitamin B1, Thiamine 151.1 nmol/L (66.5-200.0); Zinc, Plasma or Serum 95 ug/dL (44-115)
== END 2023-07-11 23:59 | disposition home or self-care (01) ==
PROVIDERS: PCP Internal Medicine
DX: I10 Essential (primary) hypertension (principal); E66.01 Morbid (severe) obesity due to excess calories; E11.9 Type 2 diabetes mellitus without complications; E78.5 Hyperlipidemia, unspecified; K21.9 Gastro-esophageal reflux disease without esophagitis; G47.33 Obstructive sleep apnea (adult) (pediatric); Z98.84 Bariatric surgery status; K90.9 Intestinal malabsorption, unspecified
CPT/HCPCS: 36415; 80053; 80061; 82306; 82607; 82728; 82746; 83036; 83540; 83550; 83735; 83970; 84425; 84443; 84630; 85027

== ENCOUNTER → 2023-09-17 | Outpatient (CLI) | payer MEDICARE, SELFPAY ==
--- NOTE | 2023-09-17 14:10 | BI_ITS ---
MAMMOGRAPHY - BILATERAL SCREENING REASON FOR EXAM: Female, 73 years old. Routine annual screening examination. PERTINENT HISTORY: Non-contributory. TECHNIQUE: Digital bilateral breast christiana (3D mammographic acquisition) in the CC and MLO projections. 2-D mediolateral oblique (MLO) and craniocaudad (CC) views of both breasts were obtained. CAD: Full Field Digital Mammography with Computer Added Detection was performed. COMPARISON: Comparison is made with prior study done July 25, 2022 and July 19, 2021. FINDINGS: Breast Composition: There are scattered areas of fibroglandular density. There are no dominant masses or suspicious calcifications. Stable small benign-appearing bilateral axillary lymph nodes. No other significant abnormalities are identified. There has been no significant change since the prior study. BI/SCRN MAMM (CAD)W/CHRISTIANA BILAT IMPRESSION: Stable bilateral screening mammogram. Yearly follow-up mammogram recommended. (A) ASSESSMENT CATEGORY: BIRADS Category 2: Benign. A letter regarding these results will be sent to the patient by the facility within 30 days. Approximately 10% of breast cancers are not detected by mammography. A normal mammogram should not delay biopsy of a clinically suspicious abnormality. [id number] Electronically Signed: Gerry Jarrett MD at 15:29 EST ,
== END | disposition home or self-care (01) ==
LOC: OPBI 14:10
PROVIDERS: PCP Internal Medicine; Referring Provider Internal Medicine; Visit Provider Internal Medicine
DX: Z12.31 Encounter for screening mammogram for malignant neoplasm of breast (principal)
CPT/HCPCS: 77063; 77067

== ENCOUNTER → 2023-10-08 | Outpatient (CLI) | payer MEDICARE, SELFPAY ==
[2023-10-08 12:39] LABS: Hematocrit 45.3 % (37-47); Hemoglobin 14.8 g/dL (12.0-15.0); Mean Corp Hgb Conc 32.7 g/dL (32-36); Mean Corpuscular Hgb 30.9 pg (27.0-32.0); Mean Corpuscular Volume 94.6 fL (81-99); Mean Platelet Vol. 10.2 fl (6.2-12.0); Platelet Count 193 K/mm3 (150-450); RBC Distribution Width CV 13.1 % (11.6-14.6); Red Blood Count 4.79 M/mm3 (4.2-5.4); White Blood Count 5.5 K/mm3 (4.4-11.0)
[2023-10-08 12:45] LABS: Vitamin B12 348 pg/mL (211-911)
[2023-10-08 13:55] LABS: ALB/GLOB Ratio 0.9 RATIO (0.9-2.4); AST(SGOT) 47 U/L (15-37); Alanine Aminotransfer ALT/SGPT 58 U/L (13-56); Albumin, Serum 3.2 g/dL (3.2-5.0); Alkaline Phosphatase 132 U/L (45-117); Anion Gap 5 (5-15); BUN 12 mg/dL (7-18); BUN/Creat Ratio 12.4 RATIO (10-20); Chloride 109 mmol/L (98-107); Cholesterol 118 mg/dL (200); Creatinine, Serum 0.97 mg/dL (0.55-1.02); EST Glomerular Filtration Rate 60 mL/min (>60); Est Glom Filt Rate - Afr Amer 73 mL/min (>60); Ferritin 39 ng/mL (8-252); Globulin 3.7 g/dL (2.2-4.2); Glucose 145 mg/dL (74-106); High Density Lipoprotein 51 mg/dL; Iron 74 ug/dL (50-170); Iron Binding Capacity,Total 432 ug/dL (250-450); Magnesium 2.3 mg/dL (1.6-2.6); PERCENT IRON SATURATION 17.1 % (15.0-55.0); Potassium 3.5 mmol/L (3.5-5.1); Protein, Total 6.9 g/dL (6.4-8.2); Sodium Level 143 mmol/L (136-145); Thyroid Stim Hormone (TSH) 1.43 uIU/mL (0.358-3.74); Triglycerides 122 mg/dL; Very Low Density Lipoprotein 24 mg/dL (5-40)
[2023-10-08 14:43] LABS: Hemoglobin A1c 5.5 % (3.8-5.6)
[2023-10-15 16:09] LABS: Vitamin B1, Thiamine 291.6 nmol/L (66.5-200.0); Zinc, Plasma or Serum 90 ug/dL (44-115)
== END | disposition home or self-care (01) ==
LOC: MTLAB 10:28
PROVIDERS: PCP Internal Medicine
DX: I10 Essential (primary) hypertension (principal); E66.01 Morbid (severe) obesity due to excess calories; E11.9 Type 2 diabetes mellitus without complications; G47.33 Obstructive sleep apnea (adult) (pediatric); K21.9 Gastro-esophageal reflux disease without esophagitis; Z98.84 Bariatric surgery status
CPT/HCPCS: 36415; 80053; 80061; 82306; 82607; 82728; 82746; 83036; 83540; 83550; 83735; 83970; 84425; 84443; 84630; 85027

== ENCOUNTER 2023-11-12 15:00 | Outpatient (RCR) | payer MEDICARE, SELFPAY ==
--- NOTE | 2023-09-27 12:37 | HP.PTEVAL_ITS ---
Patient's Visit Information Visit Information Visit Information: VERNON SOTOMAYOR is a 73 year old F referred to Physical Therapy by Dr. Vianney Peña MD with a diagnosis of Unsteady gait , neck pain. Date of Evaluation: 09/27/23 Physical Therapist: Kiya Camacho, DPT, OCS, CSCS Visit Plan Frequency: 2-3x /Week Duration: 4-6 Weeks Plan: 2-3x/week for 4-6 weeks for positional treatments as needed. Then proceed with further balance testing as needed and neck ROM, manual traction, STM and neck strength, exercise. Next session positional treatment with Kiya and patient is to call to schedule and prepare herself. Subjective Subjective: I have balance issues, sometimes feels lightheaded. Doctor thought balance was off and sent her for therapy. No spinning, No diagnosed neuropathy. Balance problem is intermittent and happens with standing up, turning and is momentary. Balance is normal most of time. Lightheaded is also positional and transient. Lying and standing. A minute or so . They have been happening for years. 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 Might spin with positional change. Retired and very sedentary. Sleep is OK, improving. Hobbies, on ilya alot. Basic ADLs I. Lives with and steps are not a problem. Neck pain intermittent chronic. Almost crunchy. Pain neckpain: Pain Intensity (Out of 10): 0 Pain Intensity Range: 0 and 1 Objective Objective: Cervical L SB adn rotation limited, deviates R with extension 25 degrees, No L SB and 35 L rotation and 45 R rotation. Pain on L side. UE AROM WFL and strength at 3+ reflexes bi, tri, patella, achilles 1/3 B Sensation UE and LE WNL to gross lgiht touch. Walks into PT I without AD and safe, trasers chair and bed I. Extremely + R hallpike jessica making her sick and nauseous immediately and having an up torsional nystagmus for 25 seconds, spinning subsided but nausea remained and did not wish any further treatment today, could not make it through the Modified thad today. 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 Balance/Special Test Scores Dizziness Score: 28 Goals Goal 1:: Patient feel 80% better in overall dizzyness Goal Time Frame: 4-6 Weeks Goal 2:: DHI score 10 or less Goal Time Frame: 4-6 Weeks Goal 3:: I appropriate HEP for general ex, neck ROM and postural strength Goal Time Frame: 4-6 Weeks Goal 4:: FGA score 24/30 Goal Time Frame: 4-6 Weeks Rehabilitation Potential Physical Therapy Diagnosis: imbalance and hesitancy with gait causing sedentary life adn lower QOL. Rehabilitation Potential: Fair Anticipated Interventions Patient/Client Instruction: Educate patient on: Condition and Plan of Care For the Purpose of:: To decrease pain, To increase ROM, To improve nutrient delivery to tissue, To improve muscle performance and motor function, To increase tolerance to activity/condition/position and To improve ability of physical actions for home/community/work/leisure Therapeutic Exercise to Include: Strength training, Balance training, Flexibilty training, Passive ROM and Active ROM Comment: vestibular as needed. For the Purpose of:: To decrease pain, To improve muscle performance and motor function, To increase tolerance to activity/condition/position, To improve gait and locomotor functions and To improve health of tissue Manual Therapy Techniques to Include: Mobilization, Passive ROM and Soft tissue mobilization For the Purpose of:: To decrease pain, To increase ROM, To improve nutrient delivery to tissue, To improve muscle performance and motor function and To increase tolerance to activity/condition/position Thermo therapy (hot pack): Yes For the Purpose of:: To decrease pain and To improve nutrient delivery to tissue Text: Thank you for the opportunity to evaluate your patient. For Medicare and Medicare HMO plans, please review the plan of care and approve it. It will need to be FAXED BACK to us at [phone] for Medicare purposes. For Medicare only, by signing this I certify the plan of care. Please let me know if there are questions or concerns regarding this plan of care. Physician Signature: Date:
--- NOTE | 2023-11-02 11:57 | HP.PTCOM_ITS ---
PT Communication Note 11/02/[address] Vianney Peña MD , Thank you for the referral of Lisa Judd to [facility] for balance assessment. I have enclosed a copy of the results for your review In summation, she did rather well on the Limits of Stability Test. She scored low on the eyes closed portion of the Modified CTSIB test. She has also shown consistently positive hallpike jessica testing which we are continuing to treat. With these results in mind, I plan to continue to see her 2x/week for 2 more weeks to teach appropriate balance exercises and work on her BPPV. She has been intructed in home neck exercises which she will continue to perform. Please do not hesitate to call if you have questions. Thank you once again. Sincerely, Edilson Camacho DPT, OCS, CSCS Contact Information
--- NOTE | 2023-12-04 11:26 | HP.PTDCSUM ---
Discharge Summary D/C summary: It has been my pleasure to treat VERNON SOTOMAYOR referred by Dr. Vianney Peña MD, with the diagnosis of Unsteady gait , neck pain for a total of 12 visit(s). Discharge Date: 12/04/23 Please see the following information for a summary of their discharge status. Subjective Subjective: Did Ok for last 3 weeks. Stopped BD b/c it was not making her dizzy after one week. Still feels she drifts to the right sometimes. Ran into something in the hallway on her right. Back to wellness and doing HEP at wellness for balance as well as stepper and resistance training for back and posture. Activities at home are near normal, not avoiding anything, I sleep alot but hard to sleep at night. To doctor Mariana end of month. No spinning lately. Can feel imbalance at times but it comes and goes. Feels like exercises have helped her mentally. Does not feel like her feeling of unsteadiness is improving despite exercises. Neck is stiff but not crunching anymore. Pain neckpain: Pain Intensity (Out of 10): 2 Overall Improvement % Improvement: 0 Objective Objective/Function: FGa is 26 and up 3 from early on. No longer having dizzyness as spinning but still feel dizzyness descirbed as veering to R but very intermittent and without reason and not present today in clinic. neck feeling better. Overall some improvements but not in what she came here for the sensation of veering,. Goals Goal 1:: Patient feel 80% better in overall dizzyness Goal Progress: Not Progressing Goal 2:: DHI score 10 or less Goal Progress: Not Progressing Goal 3:: I appropriate HEP for general ex, neck ROM and postural strength Goal Progress: Goal Met Goal 4:: FGA score 24/30 Goal Progress: Goal Met Plan Plan: d/c, pt to doctor in two weeks. D/C Information Discharge Comments: Pt will continue balance exercises at her gym and f/u with doctor in 2 weeks. d/c sentence: If there are questions or concerns regarding this patient's physical therapy, please feel free to call me at [phone]. Thank you for the referral of this patient. Sincerely, Edilson Camacho, DPT, OCS, CSCS Balance/Gait/Functional tests Balance/Special Test Scores Functional Gait Assessment Score: 26 % Disability: 13.3400 CATSIB Score (Max score 120 seconds): 120 Dizziness Score: 36 Improvement % Improvement: 0
== END 2023-11-12 19:00 | disposition home or self-care (01) ==
LOC: PT 15:00
PROVIDERS: PCP Internal Medicine; Referring Provider Internal Medicine; Visit Provider Internal Medicine
DX: M54.2 Cervicalgia (principal); R26.81 Unsteadiness on feet; R42 Dizziness and giddiness
CPT/HCPCS: 97110; 97140; 97161; 97530; 97750

== ENCOUNTER → 2024-02-25 | Outpatient (CLI) | payer MEDICARE, SELFPAY | END | disposition home or self-care (01) | PROVIDERS: PCP Internal Medicine | DX: G47.33 Obstructive sleep apnea (adult) (pediatric) (principal); I10 Essential (primary) hypertension | CPT/HCPCS: 95806 ==

== ENCOUNTER → 2024-03-18 | Outpatient (CLI) | payer MEDICARE, SELFPAY ==
[2024-03-18 10:30] LABS: Hemoglobin 13.8 g/dL (12.0-15.0); Mean Corp Hgb Conc 31.4 g/dL (32-36); Mean Corpuscular Hgb 30.6 pg (27.0-32.0); Mean Corpuscular Volume 97.6 fL (81-99); Mean Platelet Vol. 9.5 fl (6.2-12.0); Platelet Count 298 K/mm3 (150-450); RBC Distribution Width CV 13.1 % (11.6-14.6); RBC Distribution Width SD 46.6 fl (35.1-43.9); Red Blood Count 4.51 M/mm3 (4.2-5.4); White Blood Count 6.6 K/mm3 (4.4-11.0)
[2024-03-18 11:20] LABS: Hemoglobin A1c 4.8 % (3.8-5.6); PTHIN 121.3 pg/mL (18.4-80.1); Vitamin B12 448 pg/mL (211-911); Vitamin D,25 Hydroxy 41.1 ng/mL
[2024-03-18 11:35] LABS: ALB/GLOB Ratio 0.7 RATIO (0.9-2.4); AST(SGOT) 29 U/L (15-37); Alanine Aminotransfer ALT/SGPT 27 U/L (13-56); Alkaline Phosphatase 134 U/L (45-117); Anion Gap 7 (5-15); BUN 15 mg/dL (7-18); BUN/Creat Ratio 12.5 RATIO (10-20); Calcium,Total 9.3 mg/dL (8.5-10.1); Chloride 106 mmol/L (98-107); Cholesterol 154 mg/dL (200); EST Glomerular Filtration Rate 47 mL/min (>60); Est Glom Filt Rate - Afr Amer 57 mL/min (>60); Ferritin 52 ng/mL (8-252); Globulin 4.2 g/dL (2.2-4.2); Glucose 154 mg/dL (74-106); High Density Lipoprotein 61 mg/dL; Iron 91 ug/dL (50-170); Iron Binding Capacity,Total 397 ug/dL (250-450); Magnesium 2.3 mg/dL (1.6-2.6); PERCENT IRON SATURATION 22.9 % (15.0-55.0); Potassium 3.8 mmol/L (3.5-5.1); Protein, Total 7.2 g/dL (6.4-8.2); Sodium Level 140 mmol/L (136-145); Thyroid Stim Hormone (TSH) 1.09 uIU/mL (0.358-3.74); Triglycerides 143 mg/dL; Very Low Density Lipoprotein 29 mg/dL (5-40)
[2024-03-20 20:08] LABS: Vitamin B1, Thiamine 228.9 nmol/L (66.5-200.0); Zinc, WHOLE BLOOD 708 ug/dL (440-860)
== END | disposition home or self-care (01) ==
LOC: LAB 09:32
PROVIDERS: PCP Internal Medicine; Visit Provider Internal Medicine
DX: E11.9 Type 2 diabetes mellitus without complications (principal); R79.89 Other specified abnormal findings of blood chemistry; I10 Essential (primary) hypertension; G47.33 Obstructive sleep apnea (adult) (pediatric); K21.9 Gastro-esophageal reflux disease without esophagitis; Z98.84 Bariatric surgery status
CPT/HCPCS: 36415; 80053; 80061; 82306; 82607; 82728; 82746; 83036; 83540; 83550; 83735; 83970; 84425; 84443; 84630; 85027

== ENCOUNTER → 2024-09-10 | Outpatient (CLI) | payer MEDICARE, SELFPAY ==
--- NOTE | 2024-09-10 07:20 | US_ITS ---
INDICATION: Abnormal liver function EXAMINATION: Ultrasound US Abdomen Limited (quadrant) TECHNIQUE: Sanchez scale and color doppler imaging was performed of the right upper quadrant. COMPARISON: FINDINGS: LIVER: There is normal echotexture measuring 15.5 cm. No focal hepatic lesion. There is no free fluid. GALLBLADDER AND BILIARY TREE: Status post cholecystectomy. The proximal common bile duct measures 3.7 mm, which is within normal limits for the patient''s age. PANCREAS: Limited visualization of the pancreas. No pancreatic ductal dilatation. RIGHT KIDNEY: 9.4 x 4.8 x 4.3 cm. The cortex is 14 mm. No hydronephrosis. There is a 4 mm calculus. US/Abdomen Limited IMPRESSION: Nonobstructive right renal stone. Electronically Signed: Jonny Rich DO at 20:20 EST ,
== END | disposition home or self-care (01) ==
LOC: US 07:19
PROVIDERS: PCP Internal Medicine; Referring Provider Internal Medicine; Visit Provider Internal Medicine
DX: R94.5 Abnormal results of liver function studies (principal)

== ENCOUNTER → 2024-10-14 | Outpatient (CLI) | payer MEDICARE, SELFPAY ==
--- NOTE | 2024-10-14 07:22 | BI_ITS ---
PROCEDURE: SCRN MAMM (CAD)W/CHRISTIANA BILAT REASON FOR EXAM: F, Age 74 y/o, no family history. Annual mammogram. TECHNIQUE: Bilateral screening digital breast tomosynthesis with 2D and 3D images. Computer aided detection. COMPARISON: Prior exam(s) dating back to September 17, 2023.. FINDINGS: The breasts are almost entirely fatty. Stable fat containing bilateral axillary lymph nodes. No suspicious masses, areas of developing architectural distortion, or suspicious calcifications. BI/SCRN MAMM (CAD)W/CHRISTIANA BILAT IMPRESSION: BI-RADS 2: BENIGN. RECOMMEND ANNUAL MAMMOGRAPHIC SCREENING. Follow-up code: Routine Follow-up The patient will be notified of the results by letter. Reading Location: [place] [id number]
--- NOTE | 2024-10-14 07:25 | BD_ITS ---
EXAM: CLINICAL INDICATION: Determine bone density. CLINICAL HISTORY: Postmenopausal COMPARISON: 08/03/2015. TECHNIQUE: Bone densitometry of the lumbar spine and hips was performed using the HOLOGIC DEXA scanner. FINDINGS: Bone Density Measurements: SPINE AP Spine (L1-L4): 0.995 g/cm2 T-Score: -0.5 Z-Score: 1.8 WHO Classification: NORMAL There is -7.6 % change since the prior examination of 07/13/2020 LEFT FEMUR Femoral TOTAL (LEFT): 0.843 g/cm2 T-Score: -0.8 Z-Score: 0.9 WHO Classification: NORMAL Femoral NECK (LEFT): 0.720 g/cm2 T-Score: -1.2 Z-Score: 0.8 WHO Classification: OSTEOPENIA There is -11.2 % change since the prior examination of 07/25/2022 RIGHT FEMUR Femoral TOTAL (RIGHT): 0.763 g/cm2 T-Score: -1.5 Z-Score: 0.2 WHO Classification: OSTEOPENIA Femoral NECK (RIGHT): 0.668 g/cm2 T-Score: -1.6 Z-Score: 0.3 WHO Classification: OSTEOPENIA There is -11.7 % change since the prior examination of 07/25/2022 BD/Dexa Bone Density Study IMPRESSION: Findings consistent with osteopenia World Health Organization criteria for BMD interpretation classify patients as: Normal (T-score at or above -1.0), Osteopenic (T-score between -1.0 and -2.5),or Osteoporotic (T-score at or below -2.5). The presence of vertebral abnormalities such as scoliosis or osteophytes, or ao rtic/ligamentous calcifications can alter readings of the lumbar spine. In such cases, readings of the hips are more reliable. Reading Location: [place]
== END | disposition home or self-care (01) ==
LOC: OPBD 07:22
PROVIDERS: PCP Internal Medicine; Referring Provider Internal Medicine; Visit Provider Internal Medicine
DX: Z12.31 Encounter for screening mammogram for malignant neoplasm of breast (principal); Z78.0 Asymptomatic menopausal state
CPT/HCPCS: 77063; 77067; 77080

== ENCOUNTER → 2024-10-29 | Outpatient (CLI) | payer MEDICARE, SELFPAY ==
[2024-10-29 11:59] LABS: Anion Gap 10 (5-15); BUN 18 mg/dL (4-19); Calcium,Total 9.5 mg/dL (7.6-11.0); Carbon Dioxide 26.3 mmol/L (21.0-32.0); Chloride 105 mmol/L (98-108); Creatinine, Serum 1.02 mg/dL (0.70-1.20); EST Glomerular Filtration Rate 58 (>60); Glucose 129 mg/dL (70-99); Potassium 4.7 mmol/L (3.3-5.1); Sodium Level 140 mmol/L (133-145)
== END | disposition home or self-care (01) ==
LOC: LAB 10:30
PROVIDERS: PCP Internal Medicine; Referring Provider Internal Medicine Cardiovascular Disease; Visit Provider Internal Medicine Cardiovascular Disease
DX: I10 Essential (primary) hypertension (principal)
CPT/HCPCS: 36415; 80048

== ENCOUNTER → 2025-02-09 | Outpatient (CLI) | payer MEDICARE, SELFPAY ==
--- NOTE | 2025-02-09 08:21 | US_ITS ---
PROCEDURE: ABD LIMITED W/ ELASTOGRAPHY 02/09/2025 REASON FOR EXAM: FATTY LIVER KYLE TECHNIQUE: Complete abdominal ultrasound brown-scale images with color doppler. PATIENT PREPARATION: Per protocol COMPARISON: CT ABDOMEN JUNE 05, 2021 FINDINGS: Liver: HYPERECHOIC. NO DUCTAL DILATATION. NORMAL HEPATOPETAL FLOW IN THE MAIN PORTAL VEIN. SIZE WITHIN NORMAL LIMITS AT 14.7 CM LENGTH. Gallbladder: STATUS POST CHOLECYSTECTOMY. Common bile duct: 3.5 mm. Pancreas: The head has normal echogenicity. No ductal dilatation. Head as appearance within normal limits. Body and tail are obscured by bowel gas Kidneys: The right kidney measures 10.0 by 5.0 x 4.4 cm. The cortex is normal thickness at 1.3 cm. 8 x 5 mm calculus, nonobstructing identified. US/ABD Limited w/ Elastography IMPRESSION: PROCEDURE: LIVER ELASTOGRAPHY BY ULTRASOUND. TECHNIQUE: Liver stiffness measurement at 3 sites. FINDINGS AND IMPRESSION: AVERAGE MEDIAN VELOCITY VALUE: 12.6 kPa. M/s: 2.04 Metavir Score: F3-F4 Reading [facility]
== END | disposition home or self-care (01) ==
LOC: US 08:18
PROVIDERS: PCP Internal Medicine
DX: E78.5 Hyperlipidemia, unspecified (principal); K76.0 Fatty (change of) liver, not elsewhere classified
CPT/HCPCS: 76705; 76981